=== PATIENT | female | born 1935 | race Caucasian/White ===

== ENCOUNTER → 2017-04-14 | Outpatient (CLI) | payer MEDICARE, OTHER ==
[~2017-04-14] MED LIST: ASPI81CH PO; ATOR20 PO; AZIT250 PO; BENTYL20 MG PO; CELE200 PO; FLUC150A PO; Generlac10 GM/15 M PO; HORMONES; LORA1 PO; METO50 PO; TRIHYD253A PO; VALS80 PO; XARELTO20 MG PO; [UNRECOGNIZED DRUG - OTHER]
== END ==
LOC: LAB 09:17
DX: N39.0 Urinary tract infection, site not specified (principal)
CPT/HCPCS: 87086

== ENCOUNTER → 2017-04-16 | Outpatient (CLI) | payer MEDICARE, OTHER ==
[2017-04-16 09:30] LABS: BASOPHILS ABSOLUTE AUTO 0.04 K/mm3 (0.00-0.23); BASOPHILS PERCENT AUTO 1 % (0-2); EOSINOPHILS ABSOLUTE AUTO 0.18 K/mm3 (0.00-0.68); EOSINOPHILS PERCENT AUTO 5 % (0-6); Hematocrit 28.9 % (33.0-51.0); Hemoglobin 9.5 g/dL (11.5-16.0); IMMATURE GRAN ABSOLUTE AUTO 0.01 K/mm3 (0.00-0.10); IMMATURE GRAN PERCENT AUTO 0 % (0-1); LYMPHOCYTES ABSOLUTE AUTO 1.46 K/mm3 (0.84-5.20); LYMPHOCYTES PERCENT AUTO 42 % (21-46); MONOCYTES ABSOLUTE AUTO 0.27 K/mm3 (0.16-1.47); MONOCYTES PERCENT AUTO 8 % (4-13); Mean Corpuscular HGB 31.8 pg (26.0-34.0); Mean Corpuscular HGB Conc 32.9 g/dL (31.5-36.5); Mean Corpuscular Volume 97 fL (80-100); Mean Platelet Volume 11.1 fL (9.1-12.4); NEUTROPHILS ABSOLUTE AUTO 1.55 K/mm3 (1.96-9.15); NEUTROPHILS PERCENT AUTO 44 % (41-73); Platelet Count 235 K/mm3 (150-400); RDW Coefficient Variation 14.4 % (11.7-14.2); RDW Standard Deviation 51.1 fL (35.1-46.3); Red Blood Cell Count 2.99 M/mm3 (3.80-5.20); White Blood Cell Count 3.51 K/mm3 (4.00-11.30)
[2017-04-16 09:44] LABS: Albumin, Blood 3.7 g/dL (3.4-5.0); Bilirubin, Total 0.6 mg/dL (0.1-1.0); Bun/Creatinine Ratio 15.8 (12.0-20.0); Calcium, Blood 8.6 mg/dL (8.5-10.1); Creatinine, Blood 1.96 mg/dL (0.40-1.00); Globulin, Blood 3.6 g/dL (2.2-4.0); Potassium, Blood 4.2 mmol/L (3.5-5.5); Total Protein, Blood 7.3 g/dL (6.4-8.2)
[2017-04-16 09:48] LABS: Thyroid Stimulating Hormone 3.62 uIU/mL (0.360-4.800)
== END ==
LOC: LAB SHORT 08:40
DX: R11.0 Nausea (principal); R53.81 Other malaise
CPT/HCPCS: 80053; 84443; 85025

== ENCOUNTER → 2017-08-16 | Outpatient (CLI) | payer MEDICARE, OTHER ==
[2017-08-16 12:55] LABS: Protein, Urine Random 23.5 mg/dL (0.0-11.9)
== END | disposition home or self-care (01) ==
LOC: LAB SHORT 08:00 → LAB 08:00
PROVIDERS: Internal Medicine
DX: N18.3 Chronic kidney disease, stage 3 (moderate) (principal)
CPT/HCPCS: 82570; 84156

== ENCOUNTER → 2019-04-03 | Outpatient (CLI) | payer MEDICARE, OTHER | END | disposition home or self-care (01) | LOC: LAB SHORT 12:22 → LAB UCHC 12:22 | DX: N39.0 Urinary tract infection, site not specified (principal) | CPT/HCPCS: 87086 ==

== ENCOUNTER → 2019-04-05 | Outpatient (CLI) | payer MEDICARE, OTHER ==
[2019-04-05 19:29] LABS: Bilirubin, Urine Neg (Neg); Blood, Urine Neg (Neg); Glucose Qualitative, Urine Neg (Neg); Ketones, Urine Neg (Neg); Leukocyte Esterase, Urine 1+ (Neg); Nitrite, Urine Neg (Neg); Protein, Urine 1+ (Neg); Specific Gravity, Urine 1.015 (1.003-1.022); Urobilinogen, Urine NORM (Normal)
[2019-04-05 19:34] LABS: Appearance, Urine Clear (Clear); Color, Urine Yellow (P-Yellow)
[2019-04-05 19:39] LABS: Bacteria Mod /hpf; Red Blood Cells, Urine 0-2 /hpf (0-2); Squamous Epithelial Cells Mod /hpf (Few)
== END | disposition home or self-care (01) ==
LOC: LAB 17:00 → LAB SHORT 17:00
DX: R30.0 Dysuria (principal); R30.9 Painful micturition, unspecified
CPT/HCPCS: 81001; 87077; 87086; 87186

== ENCOUNTER → 2019-05-01 | Outpatient (CLI) | payer MEDICARE, OTHER | END | disposition home or self-care (01) | LOC: LAB SHORT 14:59 → PLD 14:59 | DX: L57.0 Actinic keratosis (principal) | CPT/HCPCS: 88305 ==

== ENCOUNTER → 2019-06-09 | Outpatient (CLI) | payer MEDICARE, OTHER ==
[2019-06-09 12:05] LABS: BASOPHILS ABSOLUTE AUTO 0.03 K/mm3 (0.00-0.23); BASOPHILS PERCENT AUTO 1 % (0-2); EOSINOPHILS ABSOLUTE AUTO 0.03 K/mm3 (0.00-0.68); EOSINOPHILS PERCENT AUTO 1 % (0-6); Hematocrit 33.5 % (33.0-51.0); Hemoglobin 11.5 g/dL (11.5-16.0); IMMATURE GRAN ABSOLUTE AUTO 0.02 K/mm3 (0.00-0.10); IMMATURE GRAN PERCENT AUTO 0 % (0-1); LYMPHOCYTES PERCENT AUTO 8 % (21-46); MONOCYTES ABSOLUTE AUTO 0.47 K/mm3 (0.16-1.47); MONOCYTES PERCENT AUTO 7 % (4-13); Mean Corpuscular HGB 34.1 pg (26.0-34.0); Mean Corpuscular HGB Conc 34.3 g/dL (31.5-36.5); Mean Corpuscular Volume 99 fL (80-100); Mean Platelet Volume 11.9 fL (9.1-12.4); NEUTROPHILS ABSOLUTE AUTO 5.55 K/mm3 (1.96-9.15); NEUTROPHILS PERCENT AUTO 84 % (41-73); Platelet Count 188 K/mm3 (150-400); RDW Coefficient Variation 13.4 % (11.7-14.2); RDW Standard Deviation 48.8 fL (35.1-46.3); Red Blood Cell Count 3.37 M/mm3 (3.80-5.20)
[2019-06-09 12:13] LABS: Albumin, Blood 3.6 g/dL (3.4-5.0); Albumin/Globulin Ratio 0.8 (0.8-1.8); Bilirubin, Total 0.9 mg/dL (0.1-1.0); Bun/Creatinine Ratio 13.6 (12.0-20.0); Calcium, Blood 8.8 mg/dL (8.5-10.1); Creatinine, Blood 2.14 mg/dL (0.40-1.00); Globulin, Blood 4.3 g/dL (2.2-4.0); Potassium, Blood 4.2 mmol/L (3.5-5.5); Total Protein, Blood 7.9 g/dL (6.4-8.2)
== END | disposition home or self-care (01) ==
LOC: LAB SHORT 11:59 → LAB EV 11:59
PROVIDERS: Physician Assistant Surgical
DX: J18.1 Lobar pneumonia, unspecified organism (principal)
CPT/HCPCS: 80053; 85025

== ENCOUNTER 2019-09-20 17:45 | Emergency (ER) | payer MEDICARE, OTHER | END 2019-09-20 20:28 | disposition left against medical advice (07) | LOC: ER 17:45 | DX: Z53.21 Procedure and treatment not carried out due to patient leaving prior to being seen by health care provider (principal) ==

== ENCOUNTER → 2019-10-02 | Outpatient (CLI) | payer MEDICARE, OTHER ==
[2019-10-02 12:52] LABS: Appearance, Urine Hazy (Clear); Bilirubin, Urine Neg (Neg); Blood, Urine Neg (Neg); Color, Urine Yellow (P-Yellow); Glucose Qualitative, Urine Neg (Neg); Ketones, Urine Neg (Neg); Leukocyte Esterase, Urine 3+ (Neg); Nitrite, Urine Neg (Neg); Protein, Urine Neg (Neg); Specific Gravity, Urine 1.015 (1.003-1.022); Urobilinogen, Urine NORM (Normal)
[2019-10-02 12:54] LABS: Bacteria Rare /hpf; Red Blood Cells, Urine Not Seen /hpf (0-2); Squamous Epithelial Cells Mod /hpf (Few); Transitional Epithelial Cells Mod /hpf (0-Rare)
== END | disposition home or self-care (01) ==
LOC: LAB 10:15 → LAB SHORT 10:15
PROVIDERS: Internal Medicine
DX: N18.4 Chronic kidney disease, stage 4 (severe) (principal)
CPT/HCPCS: 81001

== ENCOUNTER → 2020-09-28 | Outpatient (CLI) | payer MEDICARE, OTHER ==
[2020-09-28 11:21] LABS: Appearance, Urine Hazy (Clear); Bilirubin, Urine Neg (Neg); Blood, Urine Neg (Neg); Color, Urine Yellow (P-Yellow); Glucose Qualitative, Urine Neg (Neg); Ketones, Urine Neg (Neg); Leukocyte Esterase, Urine 3+ (Neg); Nitrite, Urine Neg (Neg); Protein, Urine 1+ (Neg); Urobilinogen, Urine NORM (Normal)
[2020-09-28 12:04] LABS: Bacteria Many /hpf; Red Blood Cells, Urine 0-2 /hpf (0-2); Squamous Epithelial Cells Mod /hpf (Few); Transitional Epithelial Cells Mod /hpf (0-Rare)
[2020-09-28 13:09] LABS: Protein, Urine Random 19.9 mg/dL (0.0-11.9)
[2020-09-28 13:27] LABS: Protein/Creat Ratio, Ur Random 0.1
== END | disposition home or self-care (01) ==
LOC: LAB SHORT 09:14 → LAB 09:14 → LAB FUT 06-25 15:55
PROVIDERS: Internal Medicine
DX: N18.4 Chronic kidney disease, stage 4 (severe) (principal)
CPT/HCPCS: 81001; 82570; 84156

== ENCOUNTER → 2021-10-01 | Outpatient (CLI) | payer MEDICARE, OTHER | END | disposition home or self-care (01) | LOC: LAB 17:56 → LAB SHORT 17:56 | DX: R82.79 Other abnormal findings on microbiological examination of urine (principal) | CPT/HCPCS: 87077; 87086; 87186 ==

== ENCOUNTER → 2021-10-20 | Outpatient (CLI) | payer MEDICARE, OTHER ==
[~2021-10-20] MED LIST changes: +AMLO10 PO; +ATOR80 PO; +Acetaminophen650 M1 PO; +DOCUZEN 8.6-501 EACH PO; +FUROSEMIDE20 MG PO; +XARELTO15 MG PO
== END | disposition home or self-care (01) ==
LOC: LAB SHORT 11:00 → LAB 11:00
DX: N39.0 Urinary tract infection, site not specified (principal)
CPT/HCPCS: 87077; 87086; 87186

== ENCOUNTER → 2021-11-08 | Outpatient (CLI) | payer MEDICARE, OTHER ==
[~2021-11-08] MED LIST changes: -AMLO10 PO; -ATOR80 PO; -Acetaminophen650 M1 PO; -DOCUZEN 8.6-501 EACH PO; -FUROSEMIDE20 MG PO; -XARELTO15 MG PO
== END | disposition home or self-care (01) ==
LOC: LAB SHORT 11:37 → LAB 11:37
DX: N39.0 Urinary tract infection, site not specified (principal)
CPT/HCPCS: 87077; 87086; 87186

== ENCOUNTER 2021-12-09 12:48 | Inpatient (IN) | payer MEDICARE, OTHER ==
[~2021-12-09] VITALS: Ht 170.2 cm; Wt 74.0 kg
[2021-12-09 13:36] LABS: BASOPHILS ABSOLUTE AUTO 0.03 K/mm3 (0.00-0.23); BASOPHILS PERCENT AUTO 1 % (0-2); EOSINOPHILS ABSOLUTE AUTO 0.04 K/mm3 (0.00-0.68); EOSINOPHILS PERCENT AUTO 1 % (0-6); Hematocrit 29.7 % (33.0-51.0); Hemoglobin 9.9 g/dL (11.5-16.0); IMMATURE GRAN ABSOLUTE AUTO 0.02 K/mm3 (0.00-0.10); IMMATURE GRAN PERCENT AUTO 0 % (0-1); LYMPHOCYTES ABSOLUTE AUTO 0.91 K/mm3 (0.84-5.20); LYMPHOCYTES PERCENT AUTO 15 % (21-46); MONOCYTES ABSOLUTE AUTO 0.35 K/mm3 (0.16-1.47); MONOCYTES PERCENT AUTO 6 % (4-13); Mean Corpuscular HGB 33.3 pg (26.0-34.0); Mean Corpuscular HGB Conc 33.3 g/dL (31.5-36.5); Mean Corpuscular Volume 100 fL (80-100); NEUTROPHILS ABSOLUTE AUTO 4.89 K/mm3 (1.96-9.15); NEUTROPHILS PERCENT AUTO 78 % (41-73); Platelet Count 173 K/mm3 (150-400); RDW Coefficient Variation 13.5 % (11.7-14.2); RDW Standard Deviation 49.9 fL (35.1-46.3); Red Blood Cell Count 2.97 M/mm3 (3.80-5.20); White Blood Cell Count 6.24 K/mm3 (4.00-11.30)
[2021-12-09 13:51] LABS: Source, Urine Clean Catch
[2021-12-09 13:59] LABS: Appearance, Urine Hazy (Clear); Bilirubin, Urine Neg (Neg); Blood, Urine 1+ (Neg); Color, Urine Yellow (P-Yellow); Glucose Qualitative, Urine Neg (Neg); Ketones, Urine Neg (Neg); Leukocyte Esterase, Urine Neg (Neg); Nitrite, Urine Neg (Neg); Protein, Urine 1+ (Neg); Urobilinogen, Urine NORM (Normal)
[2021-12-09 14:02] LABS: Albumin, Blood 3.3 g/dL (3.4-5.0); Albumin/Globulin Ratio 1.1 (0.8-1.8); Bilirubin, Total 0.7 mg/dL (0.1-1.0); Bun/Creatinine Ratio 11.1 (12.0-20.0); Calcium, Blood 8.5 mg/dL (8.5-10.1); Creatinine, Blood 2.43 mg/dL (0.40-1.00); Globulin, Blood 2.9 g/dL (2.2-4.0); Potassium, Blood 4.5 mmol/L (3.5-5.5); Total Protein, Blood 6.2 g/dL (6.4-8.2)
[2021-12-09 14:17] LABS: Influenza A, PCR NEGATIVE (NEGATIVE); Influenza B, PCR NEGATIVE (NEGATIVE); Resp Syncytial Virus, PCR NEGATIVE (NEGATIVE); SARS-Cov-2 (COVID-19) PCR, MMC NEGATIVE (NEGATIVE)
[2021-12-09 14:18] LABS: Red Blood Cells, Urine 0-2 /hpf (0-2); Squamous Epithelial Cells Few /hpf (Few); White Blood Cells, Urine 0-2 /hpf (0-5)
[2021-12-09 14:19] LABS: Bacteria Rare /hpf
[2021-12-09 14:20] LABS: Hyaline Casts 0-2 /lpf (0-2)
[2021-12-09 14:28] LABS: International Normalized Ratio 1.3; Prothrombin Time Results 13.4 Sec (9.7-11.5)
[2021-12-09] MEDS ORDERED: FUROSEMIDE20 MG PO (17:19)
--- NOTE | 2021-12-09 18:07 | NUR ---
ADMIT/SHIFT SUMMARY PATIENT ADMITTED AT 1705. PATIENT SETTLED INTO ROOM. PATIENT ORIENTED TO CALL LIGHT AND TV CONTROL. PATIENT ADMITTED FOR CVA. PATIENT UNABLE TO SPEAK, BUT ATTEMPTS. PATIENT DOES TRACK WITH HER EYES, TURNS HEAD TO LOOK AT YOU, FOLLOWS SIMPLE COMMANDS. PATIENT HAS NO RESPONSE FOR RIGHT ARM AND LEG. PATIENT RIGHT SIDE OF FACE HAS NO RESPONSE WELL. PATIENT CAN SLIGHTLY SQUEEZE WITH LEFT HAND. PATIENT ALSO VERY RIGID. MRI DONE, AWAITING RESULTS. TELE ON, AFIB IN THE 90'S. SECOND IV PLACED DUE TO HEPARIN ANS FLUIDS ORDERED. 2 RN CHECK DONE AND HEPARIN STARTED AT 12 U/KG/HR. NS AT 75. ADMISSION DONE WITH HELP OF DAUGHTER. PATIENT NPO FOR SPEECH EVAL. PT AND OT ALSO ORDERED. ECHO ORDERED BUT NOT YET DONE. PATIENT IS PLEASANT AND COOPERATIVE WITH CARE.
[2021-12-09 19:15] LABS: Hematocrit 33.1 % (33.0-51.0)
--- NOTE | 2021-12-09 19:56 | NUR ---
NURSE NOTE: 2 RN WITNESS HEPARIN CHECK- VERIFIED WITH DANETTE PATTON RN
[2021-12-10 00:28] LABS: Hematocrit 30.6 % (33.0-51.0); Hemoglobin 10.3 g/dL (11.5-16.0); Mean Corpuscular HGB 33.1 pg (26.0-34.0); Mean Corpuscular HGB Conc 33.7 g/dL (31.5-36.5); Mean Corpuscular Volume 98 fL (80-100); Platelet Count 171 K/mm3 (150-400); RDW Coefficient Variation 13.5 % (11.7-14.2); RDW Standard Deviation 48.7 fL (35.1-46.3); Red Blood Cell Count 3.11 M/mm3 (3.80-5.20); White Blood Cell Count 7.09 K/mm3 (4.00-11.30)
[2021-12-10 00:46] LABS: Bun/Creatinine Ratio 12.2 (12.0-20.0); Calcium, Blood 8.7 mg/dL (8.5-10.1); Creatinine, Blood 2.29 mg/dL (0.40-1.00); Potassium, Blood 4.5 mmol/L (3.5-5.5)
--- NOTE | 2021-12-10 05:19 | NUR ---
SHIFT SUMMARY: PT ALERT TO SELF ONLY- REMAINS COMPLETELY NON VERBAL. ABLE TO TRACK WITH EYES AND CONTINUES TO LOOK AT YOU WHEN SPEAKING TO PATIENT. PATIENT TYPICALLY UNABLE TO FOLLOW COMMANDS YET WHEN REQUESTING TO SQUEEZE LEFT HAND GROSS MOVEMENT WAS FELT. RIGHT SIDE REMAINS FLACCID. PT CONTINUES TO HAVE INCONTINENCE- PUREWICK PLACED DUE TO LARGE URINARY OUTPUT AND INCREASED DISCOMFORT WHEN TURNING. HEPARIN DRIP REMAINS RUNNING CURRENTLY AT 11 UNITS/KG. CONTINUED REPOSITIONING, BED ALARM ACTIVATED, BED IN LOW POSITION, CALL MAO AND BELONGINGS IN REACH.
[2021-12-10 07:39] LABS: CHOL/HDL RATIO 2.1; Cholesterol 121 mg/dL (50-200); HDL Cholesterol 57 mg/dL (>39); Low Density Lipoprotein Chol 55 mg/dL (0-110); Triglycerides 44 mg/dL (30-160); Very Low Density Lipoprot Chol 8 mg/dL (6-32)
--- NOTE | 2021-12-10 18:26 | NUR ---
SHIFT SUMMARY PATIENT DENIES PAIN, NAUSEA, AND SHORTNESS OF BREATH. PATIENT MEDICATED X1 WITH TYLENOL FOR FEVER. EFFECTIVE. PATIENT HAD SPEECH EVAL TODAY. RECOMMEND PUREE, THIN LIQUIDS, NO STRAWS, AND ASSISTANCE EATING. MEDS CRUSHED IN APPLSAUCE. HEPARIN DC'D AND XARELTO STARTED. PATIENT WORKED WITH PT AND OT, SNF RECOMMENDED. ECHO DONE, AWAITING RESULTS. PATIENT DAUGHTER AT BEDSIDE, ASSISTING WITH FEEDING AND ROM. PATIENT STILL UNABLE TO SPEAK. PATIENT DID LAUGH A FEW TIMES TODAY. PATIENT ABLE TO MOVE LEFT ARM WELL. RIGHT SIDE FLACCID. PATIENT FATIGUES QUICKLY. PATIENT IS PLEASANT AND COOPERATIVE WITH CARE.
[2021-12-11 05:16] LABS: BASOPHILS ABSOLUTE AUTO 0.04 K/mm3 (0.00-0.23); BASOPHILS PERCENT AUTO 1 % (0-2); EOSINOPHILS ABSOLUTE AUTO 0.21 K/mm3 (0.00-0.68); EOSINOPHILS PERCENT AUTO 3 % (0-6); Hematocrit 30.9 % (33.0-51.0); Hemoglobin 10.4 g/dL (11.5-16.0); IMMATURE GRAN ABSOLUTE AUTO 0.02 K/mm3 (0.00-0.10); IMMATURE GRAN PERCENT AUTO 0 % (0-1); LYMPHOCYTES ABSOLUTE AUTO 1.06 K/mm3 (0.84-5.20); LYMPHOCYTES PERCENT AUTO 14 % (21-46); MONOCYTES ABSOLUTE AUTO 0.57 K/mm3 (0.16-1.47); MONOCYTES PERCENT AUTO 8 % (4-13); Mean Corpuscular HGB 33.1 pg (26.0-34.0); Mean Corpuscular HGB Conc 33.7 g/dL (31.5-36.5); Mean Corpuscular Volume 98 fL (80-100); Mean Platelet Volume 12.9 fL (9.1-12.4); NEUTROPHILS PERCENT AUTO 74 % (41-73); Platelet Count 163 K/mm3 (150-400); RDW Coefficient Variation 13.8 % (11.7-14.2); RDW Standard Deviation 49.9 fL (35.1-46.3); Red Blood Cell Count 3.14 M/mm3 (3.80-5.20)
[2021-12-11 05:35] LABS: Bun/Creatinine Ratio 13.6 (12.0-20.0); Calcium, Blood 8.9 mg/dL (8.5-10.1); Creatinine, Blood 2.14 mg/dL (0.40-1.00); Potassium, Blood 4.5 mmol/L (3.5-5.5)
--- NOTE | 2021-12-11 05:36 | NUR ---
SHIFT SUMMARY 86 YR F ADMITTED ON 12/09/21 FOR CVA. FULL CODE. NO ACUTE CHANGES THIS SHIFT. PT REMAINS FLACCID ON THE RIGHT SIDE AND IS UNABLE TO COMMUNICATE VERBALLY. HER FACIAL EXPRESSIONS ARE FLAT AND IT IS DIFFICULT TO TELL IF SHE IS IN PAIN OR IS UNCOMFORTABLE. Q2 TURNS W/ NO REACTION. HEART RATE REACHED 130'S AT APPROX 0515 THIS A.M. POSSIBLY INDICATING PAIN, BUT OTHERWISE HARD TO TELL. PT DAUGHTER IS VERY PRO ACTIVE IN HER CARE AND STATED SHE WILL BE HERE AT APPROX 0730. RECOMENDATION IS FOR SNF.
--- NOTE | 2021-12-11 18:10 | NUR ---
SHIFT SUMMARY PTN NONVERBAL POST CVA, MAKES A LAUGHING NOSE AT DAUGHTER AND TELEVISION SHOW. RIGHT-SIDED DEFICIT, RIGHT LEG SPASTIC, RIGHT ARM FLACCID. RIGHT WRIST IV, LEFT AC, RUNS NS @ 75 ML/HR CONTINUOUS CURRENTLY. ON RA. TELEMETRY A-FIB AT 115. MEDS CRUSHED IN PUDDING. INCONTNENT, GABRIELA RE-PLACED THIS SHIFT. DIET PUREED. NO STRAWS. SEEN BY ST AND PT TODAY. SOME IMPROVEMENT ACCORDING TO PT, TO SIDE OF BED. CAN HOLD CUT IN LEFT HAND AND TAKE SIPS. CHRONIC LEFT KNEE DISCOMFORT ACCORDING TO DAUGHTER. VERTICAL SKIN TEARS UNDER RIGHT BREAST, CLEANED AND DRIED. TACHY UP TO 150, DOWN TO 130'S, REPORTED TO DR GAMEZ. METOPROLOL TO BE ADDED BID. CONTINUE TO MONITOR.
--- NOTE | 2021-12-12 05:14 | NUR ---
SHIFT SUMMARY 86 YR F ADMITTED ON 12/09/21 FOR CVA W/ RIGHT SIDE DEFICIT. FULL CODE. NO ACUTE CHANGES THIS SHIFT. PT IS STILL UNABLE TO VERBALLY COMMUNICATE AND IS BARELY ABLE TO MOVE HER BODY AT ALL. BP WAS ELEVATED AT BEGINNING OF THIS SHIFT WELL SHE HAD A LOW-GRADE FEVER. PRN METOPROLOL AND TYLENOL WERE GIVEN BY WAY OF CRUSHED MEDS IN [place]. THE MEDS WERE EFFECTIVE IN BRINGING DOWN HER TEMP AND BP. AT APPROX 2205 THIS NURSE GOT A CALL FROM [employer] [facility] STATING THAT PT HAD A 2 SECOND PAUSE. ABOUT 7 MIN LATER SHE HAD 5 WAVES OF VTAC ACCORDING TO [employer]. THERE WERE NO OTHER NOTEABLE RYTHMS FOR THE REST OF THE SHIFT.
[2021-12-12 05:32] LABS: BASOPHILS ABSOLUTE AUTO 0.03 K/mm3 (0.00-0.23); BASOPHILS PERCENT AUTO 0 % (0-2); EOSINOPHILS PERCENT AUTO 1 % (0-6); Hematocrit 30.8 % (33.0-51.0); Hemoglobin 10.3 g/dL (11.5-16.0); IMMATURE GRAN ABSOLUTE AUTO 0.02 K/mm3 (0.00-0.10); IMMATURE GRAN PERCENT AUTO 0 % (0-1); LYMPHOCYTES ABSOLUTE AUTO 0.86 K/mm3 (0.84-5.20); LYMPHOCYTES PERCENT AUTO 11 % (21-46); MONOCYTES ABSOLUTE AUTO 0.71 K/mm3 (0.16-1.47); MONOCYTES PERCENT AUTO 9 % (4-13); Mean Corpuscular HGB Conc 33.4 g/dL (31.5-36.5); Mean Corpuscular Volume 99 fL (80-100); Mean Platelet Volume 12.7 fL (9.1-12.4); NEUTROPHILS ABSOLUTE AUTO 5.83 K/mm3 (1.96-9.15); NEUTROPHILS PERCENT AUTO 77 % (41-73); Platelet Count 148 K/mm3 (150-400); RDW Coefficient Variation 13.7 % (11.7-14.2); RDW Standard Deviation 49.9 fL (35.1-46.3); Red Blood Cell Count 3.12 M/mm3 (3.80-5.20); White Blood Cell Count 7.55 K/mm3 (4.00-11.30)
[2021-12-12 05:58] LABS: Bun/Creatinine Ratio 14.6 (12.0-20.0); Calcium, Blood 8.7 mg/dL (8.5-10.1); Creatinine, Blood 1.99 mg/dL (0.40-1.00); Potassium, Blood 4.4 mmol/L (3.5-5.5)
--- NOTE | 2021-12-12 18:35 | NUR ---
SHIFT SUMMARY PTN 2-PERSON ASSIST, RIGHT-SIDED DEFICIT. NONVERBAL, SOMEWHAT SMILES AND LAUGHS AT TELEVISION. MEDS TAKEN WITH CHOCOLATE PUDDING WITH DIFFICULTY IN OPENING MOUTH. PTN WIH RIGHT WRIST PERIPHERAL IV, PATENT. LEFT AC IV NOT PATENT AND REMOVED THIS SHIFT. TELE A-FIB AT 115. NORVASC ADDED TO MED REGIMEN. X-RAY DONE TO LEFT HIP DUE TO DAUGHTER CONCERN FOR PAIN POST FALL. DAUGHTER PRESENT MUCH OF DAY. CONTINUE TO FOLLOW.
[2021-12-13 04:41] LABS: BASOPHILS ABSOLUTE AUTO 0.04 K/mm3 (0.00-0.23); BASOPHILS PERCENT AUTO 1 % (0-2); EOSINOPHILS ABSOLUTE AUTO 0.18 K/mm3 (0.00-0.68); EOSINOPHILS PERCENT AUTO 3 % (0-6); Hematocrit 30.5 % (33.0-51.0); IMMATURE GRAN ABSOLUTE AUTO 0.02 K/mm3 (0.00-0.10); IMMATURE GRAN PERCENT AUTO 0 % (0-1); LYMPHOCYTES PERCENT AUTO 17 % (21-46); MONOCYTES ABSOLUTE AUTO 0.63 K/mm3 (0.16-1.47); MONOCYTES PERCENT AUTO 10 % (4-13); Mean Corpuscular HGB 32.7 pg (26.0-34.0); Mean Corpuscular HGB Conc 32.8 g/dL (31.5-36.5); Mean Corpuscular Volume 100 fL (80-100); Mean Platelet Volume 12.6 fL (9.1-12.4); NEUTROPHILS ABSOLUTE AUTO 4.44 K/mm3 (1.96-9.15); NEUTROPHILS PERCENT AUTO 69 % (41-73); Platelet Count 156 K/mm3 (150-400); RDW Coefficient Variation 13.5 % (11.7-14.2); RDW Standard Deviation 49.3 fL (35.1-46.3); Red Blood Cell Count 3.06 M/mm3 (3.80-5.20); White Blood Cell Count 6.41 K/mm3 (4.00-11.30)
[2021-12-13 04:57] LABS: Bun/Creatinine Ratio 17.4 (12.0-20.0); Calcium, Blood 8.5 mg/dL (8.5-10.1); Creatinine, Blood 1.84 mg/dL (0.40-1.00); Potassium, Blood 4.2 mmol/L (3.5-5.5)
--- NOTE | 2021-12-13 05:01 | NUR ---
SHIFT SUMMARY 86 YR F ADMITTED ON 12/09/21 FOR CVA. FULL CODE. NO ACUTE CHANGES THIS SHIFT. PT IS STILL UNABLE TO COMMUNICATE BUT DID SLEEP FOR MOST OF THIS SHIFT. SHE WAS UNAROUSEABLE FOR EVENING MED WHICH IS METOPROLOL. PUREWICK IN PLACE BUT LOW OUTPUT.
--- NOTE | 2021-12-13 18:43 | NUR ---
PATIENT IS ALERT. UNABLE TO ASSESS IF SHE IS ORIENTED. PATIENT IS NON VERBAL SHE HAS USED THE COMMUNICATION CARD AND POINTED TO YES/NO THIS SHIFT. PARTIAL BEDBATH THIS SHIFT. A SMALL LOOSE BM THIS AFTERNOON. THE PATIENT'S DAUGHTER IS AT THE BEDSIDE AND VERY HELPFUL. POOR URINE OUTPUT. PUREWICK IN PLACE. DR. IZQUIERDO NOTIFIED AND SAID HE WANTS TO MONITOR FOR NOW. PATIENT WORKED WITH PT OT ST TODAY. HER APPETITE IS POOR BUT BETTER THAN BEFORE ACCORDING TO HER DAUGHTER. DESIGN MANAGER INVOLVED. WILL CONTINUE TO MONITOR
--- NOTE | 2021-12-14 05:30 | NUR ---
CALL TO PROVIDER I WAS CONCERNED THAT PT WAS NOT GETTING ENOUGH FLUIDS BECAUSE MOTOR DEFICITS WERE PREVENTING HER FROM DRINKING. I ENCOURAGED FLUIDS BUT SHE WAS ONLY ABLE TO DRINK LESS THAN 200 ML T/O THE NIGHT. SHE HAD LOW URINE OUTPUT AND HAS CKD III. I CALLED DR JACOB AND RELAYED MY CONCERNS, AND THAT IV FLUIDS WERE STOPPED EARLIER TODAY. HE ORDERED ONE BAG OF 1000 ML NS TO BE GIVEN AT 75 ML/HR NOW.
--- NOTE | 2021-12-14 05:42 | NUR ---
SHIFT SUMMARY PT IS ALERT, UNABLE TO ASSESS ORIENTATION DUE TO HER BEING NON VERBAL. I TRIED TO USE THE COMMUNICAITON CARD MULTIPLE TIMES WITHOUT SUCCESS. TOWARDS THE END OF THE SHIFT SHE WAS ABLE TO NOD UNDERSTANDING OF MY EXPLINATIONS SEVERAL TIMES WHICH SEEMED LIKE AN IMPROVEMENT FROM THE START OF THE SHIFT. I ENCOURAGED PO FLUIDS BUT PT HAD A DIFFICULT TIME DRINKING ANYTHING WITH HER MOTOR DEFICITS. PT'S URINE OUTPUT REMAINS LOW WITH DARK AD URINE. I RELAYED THIS INFO TO THE HOSPITALIST AND HE ORDERED ONE 1L BAG NS AT 75.
[2021-12-14 06:08] LABS: Bun/Creatinine Ratio 20.4 (12.0-20.0); Calcium, Blood 8.8 mg/dL (8.5-10.1); Creatinine, Blood 1.67 mg/dL (0.40-1.00); Potassium, Blood 3.8 mmol/L (3.5-5.5)
--- NOTE | 2021-12-14 18:40 | NUR ---
SHIFT SUMMARY PATIENT DENIES PAIN, NAUSEA, AND SHORTNESS OF BREATH. PATIENT IS A LIFT FOR TRANFERS AND 2P FOR REPSISITON. PATIENT DID NOT VERBALIZE ANY WORDS TODAY, BUT DID ATTEMPT TO. PATIENT SEEMS TO BE UNDERSTANDING DIRECTIONS BETTER. PATIENT WORKED WITH PT, WAS ABLE TO SIT ON SIDE OF BED. PATIENT WORKED WITH OT AND ST TOO. RECOMMENDATION IS SNF. PATIENT HAS BEEN ACCEPTED TO [facility]. COVID SW[facility] SCHEDULED FOR 6AM. PROBABLE DISCHARGE TOMORROW. PATIENT SEEMS TO BE EATING BETTER TODAY, DRINKING ENSURE. PATIENT IS PLEASANT AND COOPERATIVE WITH CARE.
--- NOTE | 2021-12-15 05:26 | NUR ---
SHIFT SUMMARY NO ACCUTE EVENTS T/O SHIFT. PT SLEPT FOR MOST OF THE NIGHT. SHE HAD A SMALL SMEARY BM BUT NOT ENOUGH TO GET A STOOL SAMPLE. SHE DID NOT APPEAR TO BE IN DISTRESS T/O SHIFT, AND SHE WAS REPOSITIONED FOR COMFORT. PT ENCOURAGED TO DRINK PO FLUIDS BUT ONLY DRANK A FEW SIPS FOR ME. PUREWICK WAS CHANGED AND IS IN PLACE AND DRAINING LIGHT AD URINE.
[2021-12-15 07:10] LABS: Influenza A, PCR NEGATIVE (NEGATIVE); Influenza B, PCR NEGATIVE (NEGATIVE); Resp Syncytial Virus, PCR NEGATIVE (NEGATIVE); SARS-Cov-2 (COVID-19) PCR, MMC NEGATIVE (NEGATIVE)
[2021-12-15] MEDS ORDERED: XARELTO15 MG PO (12:43)
[2021-12-15] MEDS ORDERED: Acetaminophen650 M1 PO (12:46)
[2021-12-15] MEDS ORDERED: AMLO10 PO (12:47)
[2021-12-15] MEDS ORDERED: ASPI81CH PO (12:48)
[2021-12-15] MEDS ORDERED: ATOR80 PO (12:50)
[2021-12-15] MEDS ORDERED: DOCUZEN 8.6-501 EACH PO (12:53)
--- NOTE | 2021-12-15 13:42 | NUR ---
DISCHARGE PATIENT TRANSPORTED VIA GURNEY BY [facility]. PATIENT DISCHARGING TO [facility]. DISCHARGE INSTRUCTIONS FAXED TO [facility]. IV REMOVED WITHOUT DIFFICULTY. TELE REMOVED WITHOUT DIFFICULTY. DAUGHTER NOTIIFIED OF TRANSFER TIME. MEDICATIONS FAXED TO [facility]. BELONGINGS SENT WITH PATIENT. DAUGHTER PICKED UP BELONGINGS. REPORT CALLED TO DIONNA ESTRADA RN AT [facility]. FACILITY TO SCHEDULE FOLLOW UP APPOINTMENT.
== END 2021-12-15 13:25 | DRG 65 ==
LOC: ER 12:48 → MEDS 14:44
PROVIDERS: Emergency Medicine; Family Medicine; Nurse Practitioner Acute Care; ADMIT Internal Medicine
DX: I63.512 Cerebral infarction due to unspecified occlusion or stenosis of left middle cerebral artery (principal); G81.91 Hemiplegia, unspecified affecting right dominant side; N18.4 Chronic kidney disease, stage 4 (severe); M25.559 Pain in unspecified hip; I12.9 Hypertensive chronic kidney disease with stage 1 through stage 4 chronic kidney disease, or unspecified chronic kidney disease; I48.0 Paroxysmal atrial fibrillation; R29.810 Facial weakness; Z20.822 Contact with and (suspected) exposure to COVID-19; E78.00 Pure hypercholesterolemia, unspecified; Z98.890 Other specified postprocedural states; Z90.49 Acquired absence of other specified parts of digestive tract; Z79.01 Long term (current) use of anticoagulants; Z90.710 Acquired absence of both cervix and uterus; Z79.899 Other long term (current) drug therapy; Z79.82 Long term (current) use of aspirin; Z79.02 Long term (current) use of antithrombotics/antiplatelets
CPT/HCPCS: 0241U; 36415; 70450; 70496; 70498; 70551; 72170; 80048; 80053; 80061; 81001; 82947; 83036; 85014; 85018; 85025; 85027; 85520; 85610; 85730; 92526; 92610; 93005; 93010; 93306; 94760; 97110; 97112; 97161; 97166; 97530; 97535; 99291-25; A9270; J1644; J7030; P9612; Q3014; Q9967

== ENCOUNTER → 2021-12-21 | Outpatient (CLI) | payer MEDICARE, OTHER ==
[~2021-12-21] MED LIST changes: +AMLO10 PO; +ATOR80 PO; +Acetaminophen650 M1 PO; +DOCUZEN 8.6-501 EACH PO; +FUROSEMIDE20 MG PO; +XARELTO15 MG PO
[2021-12-21 15:54] LABS: Hematocrit 33.4 % (33.0-51.0); Hemoglobin 11.3 g/dL (11.5-16.0); Mean Corpuscular HGB 32.8 pg (26.0-34.0); Mean Corpuscular HGB Conc 33.8 g/dL (31.5-36.5); Mean Corpuscular Volume 97 fL (80-100); Mean Platelet Volume 12.4 fL (9.1-12.4); Platelet Count 313 K/mm3 (150-400); RDW Coefficient Variation 13.8 % (11.7-14.2); RDW Standard Deviation 48.8 fL (35.1-46.3); Red Blood Cell Count 3.44 M/mm3 (3.80-5.20)
[2021-12-21 16:02] LABS: Albumin, Blood 4.2 g/dL (3.4-5.0); Albumin/Globulin Ratio 1.2 (0.8-1.8); Bilirubin, Total 0.8 mg/dL (0.1-1.0); Bun/Creatinine Ratio 17.1 (12.0-20.0); Calcium, Blood 9.8 mg/dL (8.5-10.1); Creatinine, Blood 1.93 mg/dL (0.40-1.00); Globulin, Blood 3.6 g/dL (2.2-4.0); Potassium, Blood 4.4 mmol/L (3.5-5.5); Total Protein, Blood 7.8 g/dL (6.4-8.2)
== END | disposition home or self-care (01) ==
LOC: LAB SHORT 15:37
PROVIDERS: Internal Medicine
DX: I60.12 Nontraumatic subarachnoid hemorrhage from left middle cerebral artery (principal); I13.10 Hypertensive heart and chronic kidney disease without heart failure, with stage 1 through stage 4 chronic kidney disease, or unspecified chronic kidney disease
CPT/HCPCS: 80053; 85027

== ENCOUNTER 2022-01-17 13:02 | Inpatient (IN) | payer MEDICARE, OTHER ==
[~2022-01-17] VITALS: Ht 167.6 cm; Wt 78.9 kg
[2022-01-17 13:36] LABS: BASOPHILS ABSOLUTE AUTO 0.04 K/mm3 (0.00-0.23); BASOPHILS PERCENT AUTO 1 % (0-2); EOSINOPHILS ABSOLUTE AUTO 0.11 K/mm3 (0.00-0.68); EOSINOPHILS PERCENT AUTO 2 % (0-6); Hematocrit 18.8 % (33.0-51.0); Hemoglobin 6.2 g/dL (11.5-16.0); IMMATURE GRAN ABSOLUTE AUTO 0.05 K/mm3 (0.00-0.10); IMMATURE GRAN PERCENT AUTO 1 % (0-1); LYMPHOCYTES ABSOLUTE AUTO 1.36 K/mm3 (0.84-5.20); LYMPHOCYTES PERCENT AUTO 18 % (21-46); MONOCYTES ABSOLUTE AUTO 0.59 K/mm3 (0.16-1.47); MONOCYTES PERCENT AUTO 8 % (4-13); Mean Corpuscular HGB 34.8 pg (26.0-34.0); Mean Corpuscular Volume 106 fL (80-100); Mean Platelet Volume 11.9 fL (9.1-12.4); NEUTROPHILS ABSOLUTE AUTO 5.39 K/mm3 (1.96-9.15); NEUTROPHILS PERCENT AUTO 72 % (41-73); NRBC ABSOLUTE 0.02 K/mm3 (0.00-0.02); NRBC Auto 0.3 /100 WBC (0.0-0.2); Platelet Count 232 K/mm3 (150-400); RDW Coefficient Variation 16.9 % (11.7-14.2); RDW Standard Deviation 59.2 fL (35.1-46.3); Red Blood Cell Count 1.78 M/mm3 (3.80-5.20); White Blood Cell Count 7.54 K/mm3 (4.00-11.30)
[2022-01-17 14:00] LABS: Albumin, Blood 3.9 g/dL (3.4-5.0); Albumin/Globulin Ratio 1.4 (0.8-1.8); Bilirubin, Total 0.6 mg/dL (0.1-1.0); Bun/Creatinine Ratio 31.8 (12.0-20.0); Calcium, Blood 9.3 mg/dL (8.5-10.1); Creatinine, Blood 2.64 mg/dL (0.40-1.00); Globulin, Blood 2.7 g/dL (2.2-4.0); Potassium, Blood 4.5 mmol/L (3.5-5.5); Total Protein, Blood 6.6 g/dL (6.4-8.2)
[2022-01-17 16:17] LABS: Base Excess Venous -4.1 mmol/L; Bicarbonate Venous 21.2 mmol/L (24.0-30.0); PCO2 Venous 37.6 mmHg (38-42); PO2 Venous 68.8 mmHg (38-42); pH Blood Venous 7.36 (7.34-7.37)
[2022-01-18 00:36] LABS: Hematocrit 23.3 % (33.0-51.0); Hemoglobin 7.6 g/dL (11.5-16.0)
[2022-01-18 05:05] LABS: Hemoglobin 12.3 g/dL (11.5-16.0); Mean Corpuscular HGB 32.4 pg (26.0-34.0); Mean Corpuscular HGB Conc 34.2 g/dL (31.5-36.5); Mean Platelet Volume 12.2 fL (9.1-12.4); Platelet Count 127 K/mm3 (150-400); RDW Coefficient Variation 19.7 % (11.7-14.2); RDW Standard Deviation 59.6 fL (35.1-46.3); White Blood Cell Count 3.74 K/mm3 (4.00-11.30)
[2022-01-18 05:06] LABS: Mean Corpuscular Volume 95 fL (80-100)
--- NOTE | 2022-01-18 05:54 | NUR ---
SHIFT SUMMARY: DIFFICULT TO ASSESS ACCURATE ORIENTATION DUE TO EXPRESSIVE EPHASIA AT BASELINE FROM PREVIOUS CVA. RUE AND RLE CONTRACTED DUE TO INABILITY TO MOVE FROM CVA. NO FACIAL DROOPING NOTED. O2 SATS > 92% ON RA. HR A-FIB/A-FLUTTER IN 80'S. NO COMPLAINTS OF CHEST PAIN OR SOB. INTERMITTENT COMPLAINTS OF ABDOMENAL PAIN, DENIES NAUSEA. ABDOMEN SOFT WITHOUT DISTENTION NOTED. NO GUARDING WITH PALPATION. 2 PRBC TRANSFUSED WITHOUT SIGNS OF COMPLICATIONS. REPOSITIONED Q2H AND CHANGED DUE TO INCONTINENCE. NORMAL SALINE INFUSING ORDERED.
[2022-01-18] MEDS ORDERED: FERROUS GLUCON324 M7 PO (07:43)
[2022-01-18] MEDS ORDERED: MIRALAX17 GM PO (07:44)
[2022-01-18] MEDS ORDERED: PANT40 PO (07:45)
[2022-01-18] MEDS ORDERED: CIPR500 PO (07:46)
[2022-01-18] MEDS ORDERED: METO50ER PO (07:47)
--- NOTE | 2022-01-18 15:04 | NUR ---
01/18/22 1504 Brian Umana History, Chart, Medications and Allergies reviewed before start of procedure. MONITOR INTACT WITH CONTINUOUS PULSE OXIMETRY AND INTERMITTENT BP. 3-LEAD EKG REVIEWED WITH PHYSICIAN PRIOR TO START OF PROCEDURE. O2 VIA N/C INTACT THROUGHOUT SEDATION/PROCEDURE. 2% LIDOCAINE SPRAY TO BACK OF THROAT. Bite Block Placed.
--- NOTE | 2022-01-18 17:36 | NUR ---
SHIFT SUMMARY PT HAS EXPRESSIVE APHASIA BUT IS A&O X4 AND COOROPERATIVE OF CARE. PT HAS C/O DISCOMFORT ON BUTTOCKS DUE TO RASH AND PREFERS TO HAVE BOTTOM FLOATED ON PILLOWS. RIGHT SIDED WEAKNESS D/T PAST CVA. PT C/O OF PAIN WHEN MOVING RIGHT ARM. DAUGHTER HAS BEEN AT BEDSIDE FOR MOST OF THE DAY. PT TAKEN FOR ENDOSCOPE IN AFTERNOON AND 1 ULCER WAS DISCOVERED. PT USES CALL LIGHT APPROPRIATELY. VSS. BED IN LOWEST POSITIOIN AND CALL LIGHT IN REACH.
[2022-01-19 03:56] LABS: Hematocrit 25.2 % (33.0-51.0); Hemoglobin 8.4 g/dL (11.5-16.0); Mean Corpuscular HGB 32.4 pg (26.0-34.0); Mean Corpuscular HGB Conc 33.3 g/dL (31.5-36.5); Mean Corpuscular Volume 97 fL (80-100); Mean Platelet Volume 11.4 fL (9.1-12.4); Platelet Count 210 K/mm3 (150-400); RDW Coefficient Variation 19.7 % (11.7-14.2); RDW Standard Deviation 62.3 fL (35.1-46.3); Red Blood Cell Count 2.59 M/mm3 (3.80-5.20); White Blood Cell Count 6.15 K/mm3 (4.00-11.30)
[2022-01-19 04:17] LABS: Albumin, Blood 3.1 g/dL (3.4-5.0); Albumin/Globulin Ratio 1.2 (0.8-1.8); Bilirubin, Total 1.1 mg/dL (0.1-1.0); Bun/Creatinine Ratio 26.4 (12.0-20.0); Calcium, Blood 8.2 mg/dL (8.5-10.1); Creatinine, Blood 1.93 mg/dL (0.40-1.00); Globulin, Blood 2.6 g/dL (2.2-4.0); Potassium, Blood 3.8 mmol/L (3.5-5.5); Total Protein, Blood 5.7 g/dL (6.4-8.2)
--- NOTE | 2022-01-19 05:54 | NUR ---
NOC SHIFT SUMMARY PT ORIENTED X4 BUT ANXIOUS THROUGHOUT SHIFT. EXPRESSIVE APHASIA AAND R SIDED WEAKNESS WITH R ARM CONTRACTURE BASELINE. ON RA, VSS PER PT TREND. NAUSEA AND PAIN X1 - PRNS GIVEN W/RELIEF. SEE EMAR FOR DETAILS. INCONTIENT OF BLADDER, Q2 TURNS AND BRIEF CHANGED X3 OVERNIGHT. AFIB IN 80S ON TELEMETRY. IVF RUNNING PER PROVIDER ORDER. PILLS CRUSHED IN APPLESAUCE. WILL PASS ON TO DAY RN.
--- NOTE | 2022-01-19 17:26 | NUR ---
SHIFT SUMMARY- VSS. PT A&O X3, KNOWS WHAT SHE WANTS TO SAY BUT STRUGGLES TO GET WORDS OUT DUE TO APHASIA. ABLE TO COMMUNICATE NEEDS WITH PATIENCE. TELE DISCONTINUED. ON RA. BLE EDEMA MILD. DAUGHTER AT BEDSIDE. PT TEARFUL AT TIMES BUT EASILY REDIRECTED WITH ATTENTION. TURNED Q2HR. PT RESTING WITH SIDE RAILS UP. BED ALARM ON, AND CALL LIGHT IN REACH.
[2022-01-20 05:11] LABS: Hemoglobin 7.7 g/dL (11.5-16.0); Mean Corpuscular HGB 33.2 pg (26.0-34.0); Mean Corpuscular HGB Conc 33.5 g/dL (31.5-36.5); Mean Corpuscular Volume 99 fL (80-100); Mean Platelet Volume 11.4 fL (9.1-12.4); Platelet Count 192 K/mm3 (150-400); RDW Coefficient Variation 19.4 % (11.7-14.2); RDW Standard Deviation 65.4 fL (35.1-46.3); Red Blood Cell Count 2.32 M/mm3 (3.80-5.20); White Blood Cell Count 4.53 K/mm3 (4.00-11.30)
[2022-01-20 05:28] LABS: Albumin, Blood 2.7 g/dL (3.4-5.0); Albumin/Globulin Ratio 1.1 (0.8-1.8); Bilirubin, Total 0.8 mg/dL (0.1-1.0); Bun/Creatinine Ratio 22.2 (12.0-20.0); Creatinine, Blood 1.71 mg/dL (0.40-1.00); Globulin, Blood 2.4 g/dL (2.2-4.0); Potassium, Blood 3.9 mmol/L (3.5-5.5); Total Protein, Blood 5.1 g/dL (6.4-8.2)
--- NOTE | 2022-01-20 05:50 | NUR ---
NOC SHIFT SUMMARY PT ORIENTED X3-4, ANXIOUS AND TEARFUL OVERNIGHT. REQUESTING SOMETHING FOR SLEEP. ON-CALL RESIDENT- DR. Soni CALLED AND ORDERS RECEIVED (SEE EMAR FOR DETAILS). NO COMPLAINTS OF PAIN, DENIES SOA OR CHEST PAIN. MEDICAL NO TELE STATUS. VITALS WNL, ON RA. WILL PASS ON TO DAY RN
[2022-01-20 23:30] LABS: SARS-Cov-2 (COVID-19) PCR, MMC NEGATIVE (NEGATIVE)
[2022-01-21 05:34] LABS: Albumin, Blood 2.7 g/dL (3.4-5.0); Albumin/Globulin Ratio 1.1 (0.8-1.8); Bilirubin, Total 0.8 mg/dL (0.1-1.0); Bun/Creatinine Ratio 19.1 (12.0-20.0); Calcium, Blood 8.1 mg/dL (8.5-10.1); Creatinine, Blood 1.73 mg/dL (0.40-1.00); Globulin, Blood 2.4 g/dL (2.2-4.0); Potassium, Blood 4.1 mmol/L (3.5-5.5); Total Protein, Blood 5.1 g/dL (6.4-8.2)
[2022-01-21 06:06] LABS: Hematocrit 24.2 % (33.0-51.0); Hemoglobin 7.9 g/dL (11.5-16.0); Mean Corpuscular HGB 32.6 pg (26.0-34.0); Mean Corpuscular HGB Conc 32.6 g/dL (31.5-36.5); Mean Corpuscular Volume 100 fL (80-100); Mean Platelet Volume 11.3 fL (9.1-12.4); Platelet Count 185 K/mm3 (150-400); RDW Coefficient Variation 18.9 % (11.7-14.2); RDW Standard Deviation 67.5 fL (35.1-46.3); Red Blood Cell Count 2.42 M/mm3 (3.80-5.20); White Blood Cell Count 4.18 K/mm3 (4.00-11.30)
--- NOTE | 2022-01-21 06:27 | NUR ---
NOC SHIFT SUMMARY PT ORIENTED X3-4, ANXIOUS AND SLEPT SOME AFTER MELATONIN ADMINISTRATION. CVA RESIDUAL NOTED - R ARM CONTRACTURE/WEAKNESS. R LEG MINIMAL MOVEMENT. EXPRESSIVE APHASIA. DENIES SOA OR CHEST PAIN. MEDICAL NO TELE STATUS. VITALS WNL, ON RA. WILL PASS ON TO DAY RN
--- NOTE | 2022-01-21 07:32 | NUR ---
TOOK OVER CARE OF PT AT 0720.
--- NOTE | 2022-01-21 12:52 | NUR ---
REPORT GIVEN TO ERENDIRA MEADE.
== END 2022-01-21 13:29 | DRG 378 ==
LOC: ER 13:02 → PCU 15:01
PROVIDERS: Internal Medicine Gastroenterology; Nurse Practitioner Acute Care; Physician Assistant; ADMIT Internal Medicine
PROC: 30233N1 Transfusion of Nonautologous Red Blood Cells into Peripheral Vein, Percutaneous Approach (ICD-10-PCS; 2022-01-18)
PROC: 0DJ08ZZ Inspection of Upper Intestinal Tract, Via Natural or Artificial Opening Endoscopic (ICD-10-PCS; principal; 2022-01-18 13:30)
DX: K26.4 Chronic or unspecified duodenal ulcer with hemorrhage (principal); D62 Acute posthemorrhagic anemia; N18.4 Chronic kidney disease, stage 4 (severe); N39.0 Urinary tract infection, site not specified; N17.9 Acute kidney failure, unspecified; I48.20 Chronic atrial fibrillation, unspecified; I48.0 Paroxysmal atrial fibrillation; K25.4 Chronic or unspecified gastric ulcer with hemorrhage; K59.00 Constipation, unspecified; D50.9 Iron deficiency anemia, unspecified; E78.5 Hyperlipidemia, unspecified; M48.00 Spinal stenosis, site unspecified; I12.9 Hypertensive chronic kidney disease with stage 1 through stage 4 chronic kidney disease, or unspecified chronic kidney disease; Z86.73 Personal history of transient ischemic attack (TIA), and cerebral infarction without residual deficits; Z98.890 Other specified postprocedural states; Z90.49 Acquired absence of other specified parts of digestive tract; Z90.710 Acquired absence of both cervix and uterus; Z79.82 Long term (current) use of aspirin; Z79.899 Other long term (current) drug therapy; Z85.3 Personal history of malignant neoplasm of breast; Z90.722 Acquired absence of ovaries, bilateral; Z98.41 Cataract extraction status, right eye
CPT/HCPCS: 36415; 36430; 80053; 82272; 82728; 82803; 83540; 83550; 83880; 85014; 85018; 85025; 85027; 86850; 86900; 86901; 86923; 93005; 93010; 96374; 97110; 97112; 97162; 97166; 97530; 99285-25; A9270; C1751; C9113; J2001; J2405; J2704; J2916; J7030; P9016; U0004

== ENCOUNTER 2022-05-02 02:08 | Day surgery (SDC) | payer MEDICARE, OTHER | END 2022-05-02 10:58 | disposition home or self-care (01) | LOC: ATC 02:08 | DX: D63.1 Anemia in chronic kidney disease (principal); I12.9 Hypertensive chronic kidney disease with stage 1 through stage 4 chronic kidney disease, or unspecified chronic kidney disease; N18.4 Chronic kidney disease, stage 4 (severe); I48.91 Unspecified atrial fibrillation; Z86.73 Personal history of transient ischemic attack (TIA), and cerebral infarction without residual deficits; Z88.0 Allergy status to penicillin | CPT/HCPCS: J2916 ==

== ENCOUNTER → 2022-05-02 | Outpatient (CLI) | payer MEDICARE, OTHER ==
[~2022-05-02] MED LIST changes: +CIPR500 PO; +FERROUS GLUCON324 M7 PO; +METO50ER PO; +MIRALAX17 GM PO; +PANT40 PO; +POTA10T PO; +SIME80CH PO
[2022-05-02 18:45] LABS: BASOPHILS ABSOLUTE AUTO 0.04 K/mm3 (0.00-0.23); BASOPHILS PERCENT AUTO 1 % (0-2); EOSINOPHILS ABSOLUTE AUTO 0.21 K/mm3 (0.00-0.68); EOSINOPHILS PERCENT AUTO 5 % (0-6); Hematocrit 26.6 % (33.0-51.0); Hemoglobin 8.4 g/dL (11.5-16.0); IMMATURE GRAN ABSOLUTE AUTO 0.01 K/mm3 (0.00-0.10); IMMATURE GRAN PERCENT AUTO 0 % (0-1); LYMPHOCYTES ABSOLUTE AUTO 0.93 K/mm3 (0.84-5.20); LYMPHOCYTES PERCENT AUTO 23 % (21-46); MONOCYTES ABSOLUTE AUTO 0.49 K/mm3 (0.16-1.47); MONOCYTES PERCENT AUTO 12 % (4-13); Mean Corpuscular HGB 32.7 pg (26.0-34.0); Mean Corpuscular HGB Conc 31.6 g/dL (31.5-36.5); Mean Corpuscular Volume 104 fL (80-100); Mean Platelet Volume 11.7 fL (9.1-12.4); NEUTROPHILS ABSOLUTE AUTO 2.37 K/mm3 (1.96-9.15); NEUTROPHILS PERCENT AUTO 59 % (41-73); Platelet Count 250 K/mm3 (150-400); RDW Coefficient Variation 16.5 % (11.7-14.2); RDW Standard Deviation 62.4 fL (35.1-46.3); Red Blood Cell Count 2.57 M/mm3 (3.80-5.20); White Blood Cell Count 4.05 K/mm3 (4.00-11.30)
[2022-05-02 19:10] LABS: Albumin, Blood 3.8 g/dL (3.4-5.0); Albumin/Globulin Ratio 1.1 (0.8-1.8); Bilirubin, Total 0.5 mg/dL (0.1-1.0); Bun/Creatinine Ratio 20.7 (12.0-20.0); Creatinine, Blood 2.17 mg/dL (0.40-1.00); Globulin, Blood 3.5 g/dL (2.2-4.0); Potassium, Blood 4.9 mmol/L (3.5-5.5); Total Protein, Blood 7.3 g/dL (6.4-8.2)
== END | disposition home or self-care (01) ==
LOC: LAB SHORT 14:25
PROVIDERS: Nurse Practitioner Family
DX: M79.89 Other specified soft tissue disorders (principal)
CPT/HCPCS: 80053; 85025

== ENCOUNTER 2022-05-16 00:21 | Day surgery (SDC) | payer MEDICARE, OTHER | END 2022-05-16 10:45 | disposition home or self-care (01) | LOC: ATC 00:21 | DX: I13.0 Hypertensive heart and chronic kidney disease with heart failure and stage 1 through stage 4 chronic kidney disease, or unspecified chronic kidney disease (principal); N18.9 Chronic kidney disease, unspecified; D63.1 Anemia in chronic kidney disease; Z86.73 Personal history of transient ischemic attack (TIA), and cerebral infarction without residual deficits; I48.91 Unspecified atrial fibrillation; Z79.01 Long term (current) use of anticoagulants; Z79.82 Long term (current) use of aspirin; Z88.0 Allergy status to penicillin; Z88.5 Allergy status to narcotic agent; I50.32 Chronic diastolic (congestive) heart failure | CPT/HCPCS: 96365; J2916 ==

== ENCOUNTER → 2022-06-03 | Outpatient (CLI) | payer MEDICARE, OTHER ==
[~2022-06-03] MED LIST changes: +K-TAB ER20 ME1 PO; +METOPROLOL SUCC25 MG PO; +Vitamin B-12100 MCG; +ZANAFLEX413 PO
[2022-06-03 13:29] LABS: BASOPHILS ABSOLUTE AUTO 0.02 K/mm3 (0.00-0.23); BASOPHILS PERCENT AUTO 0 % (0-2); EOSINOPHILS ABSOLUTE AUTO 0.35 K/mm3 (0.00-0.68); EOSINOPHILS PERCENT AUTO 7 % (0-6); Hematocrit 28.3 % (33.0-51.0); IMMATURE GRAN PERCENT AUTO 0 % (0-1); LYMPHOCYTES ABSOLUTE AUTO 0.69 K/mm3 (0.84-5.20); LYMPHOCYTES PERCENT AUTO 14 % (21-46); MONOCYTES ABSOLUTE AUTO 0.49 K/mm3 (0.16-1.47); MONOCYTES PERCENT AUTO 10 % (4-13); Mean Corpuscular HGB 33.3 pg (26.0-34.0); Mean Corpuscular HGB Conc 31.8 g/dL (31.5-36.5); Mean Corpuscular Volume 105 fL (80-100); Mean Platelet Volume 11.6 fL (9.1-12.4); NEUTROPHILS ABSOLUTE AUTO 3.25 K/mm3 (1.96-9.15); NEUTROPHILS PERCENT AUTO 68 % (41-73); Platelet Count 219 K/mm3 (150-400); RDW Coefficient Variation 17.5 % (11.7-14.2); RDW Standard Deviation 67.7 fL (35.1-46.3)
[2022-06-03 13:53] LABS: Creatinine, Blood 1.81 mg/dL (0.40-1.00); Percent Saturation 13.9 % (15.0-50.0); Potassium, Blood 4.7 mmol/L (3.5-5.5)
== END | disposition home or self-care (01) ==
LOC: LAB SHORT 13:24
PROVIDERS: Nurse Practitioner Family
DX: M79.89 Other specified soft tissue disorders (principal); N18.5 Chronic kidney disease, stage 5; D50.9 Iron deficiency anemia, unspecified; R06.00 Dyspnea, unspecified; Z86.73 Personal history of transient ischemic attack (TIA), and cerebral infarction without residual deficits
CPT/HCPCS: 80048; 82728; 83540; 83550; 83880; 85025

== ENCOUNTER 2022-06-05 17:21 | Inpatient (IN) | payer MEDICARE, OTHER ==
[~2022-06-05] VITALS: Ht 165.1 cm; Wt 90.7 kg
[~2022-06-05 17:21] MED LIST changes: -K-TAB ER20 ME1 PO; -METOPROLOL SUCC25 MG PO; -Vitamin B-12100 MCG; -ZANAFLEX413 PO
[2022-06-05 19:19] LABS: Source, Urine Straight Cath
[2022-06-05 19:22] LABS: Appearance, Urine Clear (Clear); Bilirubin, Urine Neg (Neg); Blood, Urine Neg (Neg); Color, Urine Yellow (P-Yellow); Glucose Qualitative, Urine Neg (Neg); Ketones, Urine Neg (Neg); Leukocyte Esterase, Urine Neg (Neg); Nitrite, Urine Neg (Neg); Protein, Urine Neg (Neg); Specific Gravity, Urine 1.015 (1.003-1.022); Urobilinogen, Urine NORM (Normal)
[2022-06-05 19:51] LABS: BASOPHILS ABSOLUTE AUTO 0.04 K/mm3 (0.00-0.23); BASOPHILS PERCENT AUTO 1 % (0-2); EOSINOPHILS ABSOLUTE AUTO 0.23 K/mm3 (0.00-0.68); EOSINOPHILS PERCENT AUTO 5 % (0-6); Hematocrit 33.4 % (33.0-51.0); Hemoglobin 10.7 g/dL (11.5-16.0); IMMATURE GRAN ABSOLUTE AUTO 0.01 K/mm3 (0.00-0.10); IMMATURE GRAN PERCENT AUTO 0 % (0-1); LYMPHOCYTES ABSOLUTE AUTO 0.83 K/mm3 (0.84-5.20); LYMPHOCYTES PERCENT AUTO 17 % (21-46); MONOCYTES ABSOLUTE AUTO 0.27 K/mm3 (0.16-1.47); MONOCYTES PERCENT AUTO 6 % (4-13); Mean Corpuscular HGB 32.7 pg (26.0-34.0); Mean Corpuscular Volume 102 fL (80-100); Mean Platelet Volume 11.1 fL (9.1-12.4); NEUTROPHILS ABSOLUTE AUTO 3.49 K/mm3 (1.96-9.15); NEUTROPHILS PERCENT AUTO 72 % (41-73); Platelet Count 271 K/mm3 (150-400); RDW Coefficient Variation 17.2 % (11.7-14.2); RDW Standard Deviation 65.1 fL (35.1-46.3); Red Blood Cell Count 3.27 M/mm3 (3.80-5.20); White Blood Cell Count 4.87 K/mm3 (4.00-11.30)
[2022-06-05 20:05] LABS: Albumin, Blood 4.3 g/dL (3.4-5.0); Bilirubin, Total 0.9 mg/dL (0.1-1.0); Bun/Creatinine Ratio 13.9 (12.0-20.0); Calcium, Blood 9.8 mg/dL (8.5-10.1); Creatinine, Blood 1.94 mg/dL (0.40-1.00); Globulin, Blood 4.3 g/dL (2.2-4.0); Potassium, Blood 4.4 mmol/L (3.5-5.5); Total Protein, Blood 8.6 g/dL (6.4-8.2)
[2022-06-05] MEDS ORDERED: METOPROLOL SUCC25 MG PO (22:04)
[2022-06-05] MEDS ORDERED: FURO40 PO (22:07)
[2022-06-05] MEDS ORDERED: POTA10T PO (22:09)
[2022-06-05] MEDS ORDERED: ZANAFLEX413 PO (22:10)
[2022-06-05] MEDS ORDERED: Vitamin B-12100 MCG PO (22:11)
--- NOTE | 2022-06-06 00:47 | NUR ---
PATIENT IS A NEW ADMIT FROM THE ED. FOUR PERSON TRANSFER FROM [facility] TO BED. AXO X 2 TO SELF AND DAUGHTER WITH CONFUSION. 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 DENIES CHEST PAIN, SOB, AND N/V. IV ABX INFUSING FROM THE ED. DAUGHTER PRESENT AND REPORTS SHE IS AN O.R. NURSE AND TAKES CARE OF HER MOM AND LIVES WITH HER. PUREWICK IN PLACE FROM ED. DR DANIELS IN TO SEE PATIENT AND REPORTS TO CONTINUE ABXS. ORIENTED TO ROOM AND CALL LIGHT SYSTEM. PATIENT WATCHING SHOW ON PORTABLE DEVICE SET UP BY DAUGHTER. HOMER.
--- NOTE | 2022-06-06 04:40 | NUR ---
SHIFT SUMMARY PATIENT HAD NO ACUTE CHANGES. AXOX 2-3 WITH CONFUSION AT TIMES AND BEDREST. PIV REMAINS INTACT. NORMAL SALINE DC'D. IV ABX INFUSED. 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 PUREWICK IN PLACE. ON ROOM AIR. CONTRACTED RIGHT HAND. DR DANIELS IN TO SEE PATIENT ON ADMIT. DAUGHTER IN ROOM FOR ADMIT AND LEFT FOR NIGHT. WATCHED MOVIE ON HOME ELECTRONIC DEVICE SETUP BY DAUGHTER. CALL LIGHT IN REACH. BED IN LOWEST POSITION. WILL CONTINUE TO MONITOR UNTIL DAY SHIFT NURSE ASSUMES CARE.
[2022-06-06 07:56] LABS: BASOPHILS ABSOLUTE AUTO 0.03 K/mm3 (0.00-0.23); BASOPHILS PERCENT AUTO 1 % (0-2); EOSINOPHILS ABSOLUTE AUTO 0.14 K/mm3 (0.00-0.68); EOSINOPHILS PERCENT AUTO 4 % (0-6); Hematocrit 25.3 % (33.0-51.0); Hemoglobin 8.4 g/dL (11.5-16.0); IMMATURE GRAN ABSOLUTE AUTO 0.01 K/mm3 (0.00-0.10); IMMATURE GRAN PERCENT AUTO 0 % (0-1); LYMPHOCYTES ABSOLUTE AUTO 0.79 K/mm3 (0.84-5.20); LYMPHOCYTES PERCENT AUTO 22 % (21-46); MONOCYTES ABSOLUTE AUTO 0.35 K/mm3 (0.16-1.47); MONOCYTES PERCENT AUTO 10 % (4-13); Mean Corpuscular HGB 33.6 pg (26.0-34.0); Mean Corpuscular HGB Conc 33.2 g/dL (31.5-36.5); Mean Corpuscular Volume 101 fL (80-100); NEUTROPHILS ABSOLUTE AUTO 2.27 K/mm3 (1.96-9.15); NEUTROPHILS PERCENT AUTO 63 % (41-73); Platelet Count 192 K/mm3 (150-400); RDW Coefficient Variation 16.9 % (11.7-14.2); RDW Standard Deviation 63.3 fL (35.1-46.3); White Blood Cell Count 3.59 K/mm3 (4.00-11.30)
[2022-06-06 08:22] LABS: Percent Saturation 12.8 % (15.0-50.0)
[2022-06-06 08:42] LABS: Albumin, Blood 3.1 g/dL (3.4-5.0); Bilirubin, Total 0.6 mg/dL (0.1-1.0); Bun/Creatinine Ratio 14.5 (12.0-20.0); Calcium, Blood 8.7 mg/dL (8.5-10.1); Creatinine, Blood 1.86 mg/dL (0.40-1.00); Globulin, Blood 3.2 g/dL (2.2-4.0); Potassium, Blood 4.5 mmol/L (3.5-5.5)
[2022-06-06 08:46] LABS: Total Protein, Blood 6.3 g/dL (6.4-8.2)
[2022-06-06 11:27] LABS: Triglycerides 42 mg/dL (30-160)
--- NOTE | 2022-06-06 16:34 | NUR ---
PT AOX3 AND COOPERATIVE OF CARE. PT DENIED ANY PAIN TODAY AND WAS ABLE TO EAT A BIT AT LUNCH. PT REPORTED NAUSEA AFTER AND WAS TREATED PER EMAR. PT REFUSED ORAL FLAGYL AND IT WAS CHANGED TO IV AGAIN AFTER NOTIFYING DR PAREKH. CALL ALARM IS WITHIN REACH WILL CONTINUE TO MONITOR.
--- NOTE | 2022-06-06 17:20 | NUR ---
TRANSFERING CARE TO [facility].
[2022-06-07 06:44] LABS: BASOPHILS ABSOLUTE AUTO 0.03 K/mm3 (0.00-0.23); BASOPHILS PERCENT AUTO 1 % (0-2); EOSINOPHILS ABSOLUTE AUTO 0.29 K/mm3 (0.00-0.68); EOSINOPHILS PERCENT AUTO 8 % (0-6); Hematocrit 25.8 % (33.0-51.0); Hemoglobin 8.4 g/dL (11.5-16.0); IMMATURE GRAN PERCENT AUTO 0 % (0-1); LYMPHOCYTES PERCENT AUTO 22 % (21-46); MONOCYTES ABSOLUTE AUTO 0.37 K/mm3 (0.16-1.47); MONOCYTES PERCENT AUTO 10 % (4-13); Mean Corpuscular HGB 32.9 pg (26.0-34.0); Mean Corpuscular HGB Conc 32.6 g/dL (31.5-36.5); Mean Corpuscular Volume 101 fL (80-100); Mean Platelet Volume 10.9 fL (9.1-12.4); NEUTROPHILS PERCENT AUTO 59 % (41-73); Platelet Count 217 K/mm3 (150-400); RDW Coefficient Variation 16.8 % (11.7-14.2); RDW Standard Deviation 62.5 fL (35.1-46.3); Red Blood Cell Count 2.55 M/mm3 (3.80-5.20); White Blood Cell Count 3.59 K/mm3 (4.00-11.30)
[2022-06-07 07:02] LABS: Bun/Creatinine Ratio 15.1 (12.0-20.0); Calcium, Blood 8.7 mg/dL (8.5-10.1); Creatinine, Blood 1.86 mg/dL (0.40-1.00); Potassium, Blood 4.4 mmol/L (3.5-5.5)
--- NOTE | 2022-06-07 14:36 | NUR ---
Received call from Pt's Primary RN Get reporting daughter at bedside. Upon entring room Pt and daughter appears somewhat researved and after introducing myself daughter becomes more anxious. Educated on PC supportive role. Neither daughter or Pt want to have any discussions at this time. Palliative Care will remain available
--- NOTE | 2022-06-07 18:14 | NUR ---
SHIFT SUMMARY: PT A&O X2-3. WHEN ASKED, SHE DID NOT KNOW WHETHER SHE HAD PAIN OR WAS JUST NERVOUS. PT HAS BEEN UPSET THIS SHIFT DUE TO FINDING OUT ABOUT HF. PT CHANGED TO SOFT DIET BUT HAS NOT HAD APPETITE FOR FOOD. GAVE PT PO ABX. PT STATES SHE HAS NOT HAD NAUSEA SINCE PO ANX BUT IS HAVING NEW PAIN IN L. FOOT. ROTATING INWARD. BED IN LOWEST POSITION. CALL LIGHT IN REACH. WILL CONTINUE TO MONITOR.
--- NOTE | 2022-06-08 05:18 | NUR ---
PATIENT ALERT X2, CONTROLLED AFIB ON TELE, PATIENT HAD A SIX BEAT RUN OF VTACH AT 0330, ROOM AIR, MAX ASSIST, PUREWICK CHANGED AND PATENT, RIGHT WRIST CONTRACTURE, SOFT FOOD, MEDS WHOLE WITH APPLESAUCE ONE AT A TIME, PATIENT BECAME NAUSEATED AFTER PO FLAGYL GIVEN, GAVE ZOFRAN FOR NAUSEA, 20 LAC SL, POSSIBLE D/C HOME TODAY, NO EVENTS OVERNIGHT
[2022-06-08 07:20] LABS: Hematocrit 29.5 % (33.0-51.0); Hemoglobin 9.3 g/dL (11.5-16.0)
[2022-06-08] MEDS ORDERED: LEVO750 PO (11:11)
[2022-06-08] MEDS ORDERED: METR500 PO (11:11)
[2022-06-08] MEDS ORDERED: METAMUCIL POWD798 GM PO (11:12)
[2022-06-08] MEDS ORDERED: VISBIOME 112.51 EACH PO (11:13)
[2022-06-08] MEDS ORDERED: ONDA4ODT MM (11:15)
--- NOTE | 2022-06-08 12:29 | NUR ---
Patient tolerating PO intake and PO meds this morning. Premedicated w/ Zofran before giving oral ABX. Plan is to discharge home today. Reviewed discharge instructions with pt/daughter. Meds faxed to [facility]. Pt left at 1200 via wheelchair transport.
== END 2022-06-08 11:59 | disposition home health service (06) | DRG 391 ==
LOC: ER 17:21 → MEDS 17:22
PROVIDERS: Family Medicine; Student in an Organized Health Care Education/Training Program; ADMIT Student in an Organized Health Care Education/Training Program
DX: K57.32 Diverticulitis of large intestine without perforation or abscess without bleeding (principal); I50.33 Acute on chronic diastolic (congestive) heart failure; I48.20 Chronic atrial fibrillation, unspecified; I13.0 Hypertensive heart and chronic kidney disease with heart failure and stage 1 through stage 4 chronic kidney disease, or unspecified chronic kidney disease; N18.4 Chronic kidney disease, stage 4 (severe); D50.9 Iron deficiency anemia, unspecified; R74.8 Abnormal levels of other serum enzymes; D63.1 Anemia in chronic kidney disease; Z91.14 Patient's other noncompliance with medication regimen; Z28.21 Immunization not carried out because of patient refusal; Z86.73 Personal history of transient ischemic attack (TIA), and cerebral infarction without residual deficits; Z90.710 Acquired absence of both cervix and uterus; Z98.890 Other specified postprocedural states; Z90.49 Acquired absence of other specified parts of digestive tract; Z90.11 Acquired absence of right breast and nipple; Z88.0 Allergy status to penicillin; Z88.2 Allergy status to sulfonamides; Z79.01 Long term (current) use of anticoagulants; Z79.82 Long term (current) use of aspirin; Z79.899 Other long term (current) drug therapy
CPT/HCPCS: 36415; 51701; 71046; 74177; 80048; 80053; 81003; 82607; 82728; 82746; 83540; 83550; 83690; 83735; 84478; 84484; 85014; 85018; 85025; 93005; 93010; 93306; 96361; 96365; 96365-59; 96366; 96367; 96372; 96375; 97162; 97530; 99285-25; A9270; G0378; J0696; J1644; J1956; J2405; J7030; P9612; Q9967

== ENCOUNTER → 2022-06-30 | Outpatient (CLI) | payer MEDICARE, OTHER ==
[~2022-06-30] MED LIST changes: +FURO40 PO; +LEVO750 PO; +METAMUCIL POWD798 GM PO; +METOPROLOL SUCC25 MG PO; +METR500 PO; +ONDA4ODT MM; +VISBIOME 112.51 EACH PO; +Vitamin B-12100 MCG PO; +ZANAFLEX413 PO
[2022-06-30 19:41] LABS: BASOPHILS ABSOLUTE AUTO 0.02 K/mm3 (0.00-0.23); BASOPHILS PERCENT AUTO 1 % (0-2); EOSINOPHILS ABSOLUTE AUTO 0.28 K/mm3 (0.00-0.68); EOSINOPHILS PERCENT AUTO 7 % (0-6); Hematocrit 32.2 % (33.0-51.0); Hemoglobin 10.3 g/dL (11.5-16.0); IMMATURE GRAN ABSOLUTE AUTO 0.01 K/mm3 (0.00-0.10); IMMATURE GRAN PERCENT AUTO 0 % (0-1); LYMPHOCYTES PERCENT AUTO 36 % (21-46); MONOCYTES ABSOLUTE AUTO 0.42 K/mm3 (0.16-1.47); MONOCYTES PERCENT AUTO 11 % (4-13); Mean Corpuscular HGB 32.5 pg (26.0-34.0); Mean Corpuscular Volume 102 fL (80-100); Mean Platelet Volume 11.6 fL (9.1-12.4); NEUTROPHILS PERCENT AUTO 46 % (41-73); Platelet Count 206 K/mm3 (150-400); RDW Coefficient Variation 17.3 % (11.7-14.2); RDW Standard Deviation 65.3 fL (35.1-46.3); Red Blood Cell Count 3.17 M/mm3 (3.80-5.20); White Blood Cell Count 3.93 K/mm3 (4.00-11.30)
[2022-06-30 21:18] LABS: Albumin, Blood 3.8 g/dL (3.4-5.0); Anion Gap 5 mmol/L (6-16); Blood Urea Nitrogen 23 mg/dL (8-24); Bun/Creatinine Ratio 12.6 (12.0-20.0); CO2, Blood 27 mmol/L (21-32); Calcium, Blood 9.5 mg/dL (8.5-10.1); Chloride, Blood 105 mmol/L (98-108); Creatinine, Blood 1.83 mg/dL (0.40-1.00); Glomerular Filtration Rate 26 (60-); Glucose, Blood 110 mg/dL (70-99); Phosphorus, Blood 3.8 mg/dL (2.5-4.9); Potassium, Blood 4.7 mmol/L (3.5-5.5); Sodium, Blood 137 mmol/L (136-145)
== END | disposition home or self-care (01) ==
LOC: LAB SHORT 16:25
PROVIDERS: Internal Medicine Nephrology
DX: N18.4 Chronic kidney disease, stage 4 (severe) (principal); E55.9 Vitamin D deficiency, unspecified; I50.30 Unspecified diastolic (congestive) heart failure; I69.351 Hemiplegia and hemiparesis following cerebral infarction affecting right dominant side; M62.81 Muscle weakness (generalized); R60.9 Edema, unspecified; R11.0 Nausea; E03.8 Other specified hypothyroidism
CPT/HCPCS: 80069; 83970; 85025

== ENCOUNTER → 2022-07-21 | Outpatient (CLI) | payer MEDICARE, OTHER ==
[2022-07-21 15:09] LABS: Albumin, Blood 3.6 g/dL (3.4-5.0); Albumin/Globulin Ratio 0.9 (0.8-1.8); Bilirubin, Total 0.8 mg/dL (0.1-1.0); Bun/Creatinine Ratio 13.2 (12.0-20.0); Calcium, Blood 9.2 mg/dL (8.5-10.1); Creatinine, Blood 2.05 mg/dL (0.40-1.00); Phosphorus, Blood 3.5 mg/dL (2.5-4.9); Potassium, Blood 4.3 mmol/L (3.5-5.5); Thyroid Stimulating Hormone 9.72 uIU/mL (0.360-4.800); Total Protein, Blood 7.6 g/dL (6.4-8.2)
== END | disposition home or self-care (01) ==
LOC: LAB SHORT 13:06
PROVIDERS: Nurse Practitioner Family
DX: E03.8 Other specified hypothyroidism (principal); I69.351 Hemiplegia and hemiparesis following cerebral infarction affecting right dominant side; I13.0 Hypertensive heart and chronic kidney disease with heart failure and stage 1 through stage 4 chronic kidney disease, or unspecified chronic kidney disease; M62.81 Muscle weakness (generalized); I50.30 Unspecified diastolic (congestive) heart failure; N18.4 Chronic kidney disease, stage 4 (severe); R11.0 Nausea; R60.9 Edema, unspecified
CPT/HCPCS: 80053; 83690; 83880; 84100; 84443

== ENCOUNTER → 2022-09-09 | Outpatient (CLI) | payer MEDICARE, OTHER ==
[2022-09-09 17:52] LABS: Source, Urine Clean Catch
[2022-09-09 19:29] LABS: BASOPHILS ABSOLUTE AUTO 0.02 K/mm3 (0.00-0.23); BASOPHILS PERCENT AUTO 1 % (0-2); EOSINOPHILS ABSOLUTE AUTO 0.08 K/mm3 (0.00-0.68); EOSINOPHILS PERCENT AUTO 3 % (0-6); Hematocrit 29.1 % (33.0-51.0); Hemoglobin 9.3 g/dL (11.5-16.0); IMMATURE GRAN ABSOLUTE AUTO 0.01 K/mm3 (0.00-0.10); IMMATURE GRAN PERCENT AUTO 0 % (0-1); LYMPHOCYTES ABSOLUTE AUTO 0.75 K/mm3 (0.84-5.20); LYMPHOCYTES PERCENT AUTO 25 % (21-46); MONOCYTES PERCENT AUTO 10 % (4-13); Mean Corpuscular HGB 33.2 pg (26.0-34.0); Mean Corpuscular Volume 104 fL (80-100); NEUTROPHILS ABSOLUTE AUTO 1.81 K/mm3 (1.96-9.15); NEUTROPHILS PERCENT AUTO 61 % (41-73); Platelet Count 170 K/mm3 (150-400); RDW Coefficient Variation 17.6 % (11.7-14.2); RDW Standard Deviation 67.4 fL (35.1-46.3); White Blood Cell Count 2.97 K/mm3 (4.00-11.30)
[2022-09-09 19:56] LABS: Albumin/Globulin Ratio 1.1 (0.8-1.8); Bilirubin, Total 0.8 mg/dL (0.1-1.0); Bun/Creatinine Ratio 17.8 (12.0-20.0); Calcium, Blood 9.3 mg/dL (8.5-10.1); Creatinine, Blood 2.13 mg/dL (0.40-1.00); Globulin, Blood 3.6 g/dL (2.2-4.0); Potassium, Blood 4.2 mmol/L (3.5-5.5); Thyroid Stimulating Hormone 4.79 uIU/mL (0.360-4.800); Total Protein, Blood 7.6 g/dL (6.4-8.2)
[2022-09-09 20:01] LABS: Bilirubin, Urine Neg (Neg); Blood, Urine Neg (Neg); Glucose Qualitative, Urine Neg (Neg); Ketones, Urine Neg (Neg); Leukocyte Esterase, Urine Neg (Neg); Nitrite, Urine Neg (Neg); Protein, Urine 1+ (Neg); Specific Gravity, Urine 1.015 (1.003-1.022); Urobilinogen, Urine NORM (Normal)
[2022-09-09 20:10] LABS: BASOPHILS ABSOLUTE MAN 0.05 K/mm3 (0.00-0.23); BASOPHILS PERCENT MAN 2 % (0-2); EOSINOPHILS ABSOLUTE MAN 0.11 K/mm3 (0.00-0.68); EOSINOPHILS PERCENT MAN 4 % (0-6); LYMPHOCYTES ABSOLUTE MAN 0.83 K/mm3 (0.84-5.20); LYMPHOCYTES PERCENT MAN 28 % (21-46); MONOCYTES ABSOLUTE MAN 0.05 K/mm3 (0.16-1.47); MONOCYTES PERCENT MAN 2 % (4-13); SEG NEUTROPHILS PERCENT MAN 64 % (41-73); TOTAL CELLS COUNTED 100
[2022-09-09 20:19] LABS: Color, Urine Yellow (P-Yellow)
[2022-09-09 20:20] LABS: Appearance, Urine Clear (Clear)
== END | disposition home or self-care (01) ==
LOC: LAB SHORT 17:47 → LAB 17:47
PROVIDERS: Nurse Practitioner Family
DX: E05.90 Thyrotoxicosis, unspecified without thyrotoxic crisis or storm (principal); I10 Essential (primary) hypertension; R60.9 Edema, unspecified; R55 Syncope and collapse; R32 Unspecified urinary incontinence
CPT/HCPCS: 80053; 84443; 85025; 87086

== ENCOUNTER → 2022-10-11 | Outpatient (CLI) | payer MEDICARE, OTHER | END | disposition home or self-care (01) | LOC: LAB SHORT 07:24 → LAB 07:24 | DX: I10 Essential (primary) hypertension (principal); R60.9 Edema, unspecified ==

== ENCOUNTER → 2022-10-19 | Outpatient (CLI) | payer MEDICARE, OTHER ==
[2022-10-20 11:00] LABS: Stool Occult Bld Immuno 1 Negative (NEGATIVE)
== END | disposition home or self-care (01) ==
LOC: LAB 11:33 → LAB SHORT 11:33
PROVIDERS: Nurse Practitioner Family
DX: Z12.11 Encounter for screening for malignant neoplasm of colon (principal)
CPT/HCPCS: 82274

== ENCOUNTER → 2022-10-26 | Outpatient (CLI) | payer MEDICARE, OTHER ==
[2022-10-26 19:47] LABS: BASOPHILS ABSOLUTE AUTO 0.02 K/mm3 (0.00-0.23); BASOPHILS PERCENT AUTO 1 % (0-2); EOSINOPHILS ABSOLUTE AUTO 0.09 K/mm3 (0.00-0.68); EOSINOPHILS PERCENT AUTO 3 % (0-6); Hematocrit 31.9 % (33.0-51.0); Hemoglobin 10.2 g/dL (11.5-16.0); IMMATURE GRAN PERCENT AUTO 0 % (0-1); LYMPHOCYTES ABSOLUTE AUTO 0.76 K/mm3 (0.84-5.20); LYMPHOCYTES PERCENT AUTO 29 % (21-46); MONOCYTES ABSOLUTE AUTO 0.32 K/mm3 (0.16-1.47); MONOCYTES PERCENT AUTO 12 % (4-13); Mean Corpuscular HGB 33.4 pg (26.0-34.0); Mean Corpuscular Volume 105 fL (80-100); Mean Platelet Volume 11.7 fL (9.1-12.4); NEUTROPHILS ABSOLUTE AUTO 1.43 K/mm3 (1.96-9.15); NEUTROPHILS PERCENT AUTO 55 % (41-73); Platelet Count 168 K/mm3 (150-400); RDW Coefficient Variation 17.1 % (11.7-14.2); RDW Standard Deviation 65.8 fL (35.1-46.3); Red Blood Cell Count 3.05 M/mm3 (3.80-5.20); White Blood Cell Count 2.62 K/mm3 (4.00-11.30)
[2022-10-26 20:33] LABS: Albumin, Blood 4.1 g/dL (3.4-5.0); Albumin/Globulin Ratio 1.2 (0.8-1.8); Bilirubin, Total 1.1 mg/dL (0.1-1.0); Bun/Creatinine Ratio 17.1 (12.0-20.0); Calcium, Blood 9.4 mg/dL (8.5-10.1); Creatinine, Blood 1.99 mg/dL (0.40-1.00); Globulin, Blood 3.5 g/dL (2.2-4.0); Potassium, Blood 4.1 mmol/L (3.5-5.5); Thyroid Stimulating Hormone 5.79 uIU/mL (0.360-4.800); Total Protein, Blood 7.6 g/dL (6.4-8.2)
== END | disposition home or self-care (01) ==
LOC: LAB SHORT 18:53 → LAB 18:53
PROVIDERS: Family Medicine; Nurse Practitioner Family
DX: D72.9 Disorder of white blood cells, unspecified (principal); N18.5 Chronic kidney disease, stage 5; Z79.899 Other long term (current) drug therapy
CPT/HCPCS: 80053; 83880; 84443; 85025

== ENCOUNTER → 2022-11-14 | Outpatient (CLI) | payer MEDICARE, OTHER ==
[2022-11-14 19:02] LABS: Albumin, Blood 3.9 g/dL (3.4-5.0); Anion Gap 5 mmol/L (6-16); Blood Urea Nitrogen 48 mg/dL (8-24); Bun/Creatinine Ratio 20.3 (12.0-20.0); CO2, Blood 33 mmol/L (21-32); Calcium, Blood 9.4 mg/dL (8.5-10.1); Chloride, Blood 104 mmol/L (98-108); Creatinine, Blood 2.36 mg/dL (0.40-1.00); Glomerular Filtration Rate 19 (60-); Glucose, Blood 97 mg/dL (70-99); Potassium, Blood 4.2 mmol/L (3.5-5.5); Sodium, Blood 142 mmol/L (136-145)
== END | disposition home or self-care (01) ==
LOC: LAB SHORT 16:27 → LAB 16:27
PROVIDERS: Nurse Practitioner Family
DX: I12.9 Hypertensive chronic kidney disease with stage 1 through stage 4 chronic kidney disease, or unspecified chronic kidney disease (principal); N18.4 Chronic kidney disease, stage 4 (severe)
CPT/HCPCS: 80069

== ENCOUNTER → 2022-12-12 | Outpatient (CLI) | payer MEDICARE, OTHER ==
[2022-12-13 18:34] LABS: Protein, Urine Random 19.5 mg/dL (0.0-11.9); Protein/Creat Ratio, Ur Random 0.2
== END | disposition home or self-care (01) ==
LOC: LAB 07:00 → LAB SHORT 07:00
PROVIDERS: Hospitalist
DX: N18.4 Chronic kidney disease, stage 4 (severe) (principal)
CPT/HCPCS: 82570; 84156

== ENCOUNTER → 2022-12-13 | Outpatient (CLI) | payer MEDICARE, OTHER ==
[2022-12-13 13:06] LABS: Source, Urine Voided
[2022-12-13 14:17] LABS: Appearance, Urine Clear (Clear); Bilirubin, Urine Neg (Neg); Blood, Urine Neg (Neg); Color, Urine Yellow (P-Yellow); Glucose Qualitative, Urine Neg (Neg); Ketones, Urine Neg (Neg); Leukocyte Esterase, Urine Neg (Neg); Nitrite, Urine Neg (Neg); Protein, Urine 1+ (Neg); Urobilinogen, Urine NORM (Normal)
[2022-12-13 18:00] LABS: BASOPHILS ABSOLUTE AUTO 0.05 K/mm3 (0.00-0.23); BASOPHILS PERCENT AUTO 2 % (0-2); EOSINOPHILS ABSOLUTE AUTO 0.12 K/mm3 (0.00-0.68); EOSINOPHILS PERCENT AUTO 4 % (0-6); Hematocrit 34.5 % (33.0-51.0); IMMATURE GRAN PERCENT AUTO 0 % (0-1); LYMPHOCYTES ABSOLUTE AUTO 1.04 K/mm3 (0.84-5.20); LYMPHOCYTES PERCENT AUTO 37 % (21-46); MONOCYTES ABSOLUTE AUTO 0.37 K/mm3 (0.16-1.47); MONOCYTES PERCENT AUTO 13 % (4-13); Mean Corpuscular HGB 33.2 pg (26.0-34.0); Mean Corpuscular HGB Conc 31.9 g/dL (31.5-36.5); Mean Corpuscular Volume 104 fL (80-100); Mean Platelet Volume 12.5 fL (9.1-12.4); NEUTROPHILS ABSOLUTE AUTO 1.27 K/mm3 (1.96-9.15); NEUTROPHILS PERCENT AUTO 45 % (41-73); Platelet Count 153 K/mm3 (150-400); RDW Coefficient Variation 15.9 % (11.7-14.2); RDW Standard Deviation 61.5 fL (35.1-46.3); Red Blood Cell Count 3.31 M/mm3 (3.80-5.20); White Blood Cell Count 2.85 K/mm3 (4.00-11.30)
[2022-12-13 23:21] LABS: Albumin, Blood 4.1 g/dL (3.4-5.0); Anion Gap 5 mmol/L (6-16); Blood Urea Nitrogen 45 mg/dL (8-24); Bun/Creatinine Ratio 21.2 (12.0-20.0); CO2, Blood 30 mmol/L (21-32); Calcium, Blood 9.5 mg/dL (8.5-10.1); Chloride, Blood 106 mmol/L (98-108); Creatinine, Blood 2.12 mg/dL (0.40-1.00); Ferritin, Serum 57 ng/mL (8-252); Glomerular Filtration Rate 22 (60-); Glucose, Blood 88 mg/dL (70-99); Iron Serum 67 ug/dL (50-170); Percent Saturation 17.2 % (15.0-50.0); Phosphorus, Blood 3.6 mg/dL (2.5-4.9); Potassium, Blood 4.4 mmol/L (3.5-5.5); Sodium, Blood 141 mmol/L (136-145); Total Iron Binding Capacity 389 ug/dL (250-450)
== END | disposition home or self-care (01) ==
LOC: LAB 13:02 → LAB SHORT 13:02
PROVIDERS: Hospitalist; Nurse Practitioner Family
DX: N18.4 Chronic kidney disease, stage 4 (severe) (principal); D63.1 Anemia in chronic kidney disease; E03.9 Hypothyroidism, unspecified
CPT/HCPCS: 80069; 82728; 83540; 83550; 84443; 85025

== ENCOUNTER → 2023-02-09 | Outpatient (CLI) | payer MEDICARE, OTHER ==
[~2023-02-09] MED LIST changes: +Colace100 MG PO; +FAMO40 PO; +FOLI1 PO; +LEVSOD25 PO; +SENNA LAXATIVE8.6 MG PO; +SOAANZ40 M1 PO
[2023-02-09 15:18] LABS: Source, Urine Clean Catch
[2023-02-09 18:42] LABS: Appearance, Urine Clear (Clear); Bilirubin, Urine Neg (Neg); Blood, Urine Neg (Neg); Color, Urine Yellow (P-Yellow); Glucose Qualitative, Urine Neg (Neg); Ketones, Urine Neg (Neg); Leukocyte Esterase, Urine Neg (Neg); Nitrite, Urine Neg (Neg); Protein, Urine Neg (Neg); Urobilinogen, Urine NORM (Normal)
[2023-02-09 19:38] LABS: Protein, Urine Random 7.7 mg/dL (0.0-11.9); Protein/Creat Ratio, Ur Random 0.2
== END | disposition home or self-care (01) ==
LOC: LAB 14:35 → LAB SHORT 14:35
PROVIDERS: Hospitalist
DX: N18.4 Chronic kidney disease, stage 4 (severe) (principal)
CPT/HCPCS: 81003; 82570; 84156

== ENCOUNTER 2023-02-18 03:58 | Inpatient (IN) | payer MEDICARE, OTHER ==
[2023-02-18] VITALS (9 sets, daily range): BP systolic 122–145; BP diastolic 59–98
[~2023-02-18] VITALS: Ht 162.6 cm; Wt 60.9 kg
[~2023-02-18 03:58] MED LIST changes: -Colace100 MG PO; -FAMO40 PO; -FOLI1 PO; -LEVSOD25 PO; -SENNA LAXATIVE8.6 MG PO; -SOAANZ40 M1 PO
[2023-02-18 04:59] LABS: BASOPHILS ABSOLUTE AUTO 0.02 K/mm3 (0.00-0.23); BASOPHILS PERCENT AUTO 1 % (0-2); EOSINOPHILS ABSOLUTE AUTO 0.02 K/mm3 (0.00-0.68); EOSINOPHILS PERCENT AUTO 1 % (0-6); Hematocrit 28.5 % (33.0-51.0); Hemoglobin 9.5 g/dL (11.5-16.0); IMMATURE GRAN ABSOLUTE AUTO 0.01 K/mm3 (0.00-0.10); IMMATURE GRAN PERCENT AUTO 0 % (0-1); LYMPHOCYTES ABSOLUTE AUTO 0.38 K/mm3 (0.84-5.20); LYMPHOCYTES PERCENT AUTO 15 % (21-46); MONOCYTES ABSOLUTE AUTO 0.45 K/mm3 (0.16-1.47); MONOCYTES PERCENT AUTO 17 % (4-13); Mean Corpuscular HGB 34.2 pg (26.0-34.0); Mean Corpuscular HGB Conc 33.3 g/dL (31.5-36.5); Mean Corpuscular Volume 103 fL (80-100); Mean Platelet Volume 12.4 fL (9.1-12.4); NEUTROPHILS ABSOLUTE AUTO 1.72 K/mm3 (1.96-9.15); NEUTROPHILS PERCENT AUTO 66 % (41-73); Platelet Count 93 K/mm3 (150-400); RDW Standard Deviation 64.2 fL (35.1-46.3); Red Blood Cell Count 2.78 M/mm3 (3.80-5.20)
[2023-02-18 05:40] LABS: Albumin, Blood 4.2 g/dL (3.4-5.0); Bun/Creatinine Ratio 27.8 (12.0-20.0); Creatinine, Blood 2.7 mg/dL (0.40-1.00); Globulin, Blood 4.2 g/dL (2.2-4.0); Total Protein, Blood 8.4 g/dL (6.4-8.2)
[2023-02-18 05:50] LABS: Source, Urine Straight Cath
[2023-02-18 06:02] LABS: Bilirubin, Urine Neg (Neg); Blood, Urine Neg (Neg); Glucose Qualitative, Urine Neg (Neg); Ketones, Urine Neg (Neg); Leukocyte Esterase, Urine Neg (Neg); Nitrite, Urine Neg (Neg); Protein, Urine 1+ (Neg); Urobilinogen, Urine NORM (Normal)
[2023-02-18 06:07] LABS: Appearance, Urine Clear (Clear); Color, Urine Yellow (P-Yellow)
[2023-02-18 06:15] LABS: Magnesium, Blood 2.6 mg/dL (1.6-2.4); Prolactin 10.7 ng/mL (2.74-19.64)
[2023-02-18 06:29] LABS: Base Excess Venous 0.5 mmol/L; Bicarbonate Venous 24.4 mmol/L (24.0-30.0); pH Blood Venous 7.35 (7.34-7.37)
[2023-02-18 07:21] LABS: Influenza A, PCR NEGATIVE (NEGATIVE); Influenza B, PCR NEGATIVE (NEGATIVE); Resp Syncytial Virus, PCR NEGATIVE (NEGATIVE); SARS-Cov-2 (COVID-19) PCR, MMC NEGATIVE (NEGATIVE)
[2023-02-18] MEDS ORDERED: FOLI1 PO (11:46)
--- NOTE | 2023-02-18 12:14 | NUR ---
ER ADMIT PATIENT ARRIVED TO MEDICAL FLOOR AT 1130 VIA GURNEY. PATIENT TRANSFERED TO BED. UPON REMOVING ADDITIONAL LINNEN FOR ACCURATE WEIGHT MEASUREMENT PATIENT HAD A 60-SECOND EPISODE OF ABSENT GAZING TO THE RIGHT, NO RESPONSE TO TOUCH OR SOUND, RIGIDITY OF MUSCLES ESPECIALLY IN UPPER BODY AND HOLDING HER BREATH. PER PATIENTS DAUGHTER, THIS IS WHAT SHE HAD BEEN NOTICING AT HOME ALSO. ADMISSION HISTORY OBTAINED FROM PATIENTS DAUGHTER. COPY OF MED LIST PROVIDED. HER DAUGHTER APPLIES RIGHT WRIST SPLINT, STATES PATIENT WEARS IT DURING THE DAY. PATIENT IS ABLE TO PROVIDE LIMITED HISTORY AND IS VERY FATIGUED. PATIENT AND DAUGHTER ORIENTED TO THE UNIT AND ROOM. WILL CONT TO MONITOR.
--- NOTE | 2023-02-18 13:02 | NUR ---
DURING PERSONAL CARE PATIENT EXPERIENCED ANOTHER EPISODE OF ABSENT GAIZING, RIGIDITY AND NON RESPONSIVENESS. RECEIVED CALL FROM TELEMETRY, JOYCEM NOTED TO BE A-FLUTTER WITH A HEART RATE OF 28. ONCE PATIENT RECOVERED HR NOTED TO BE 56. CALL PLACED TO . ORDER FOR LABS RECEIVED. WILL CONT TO MONITOR.
[2023-02-18] MEDS ORDERED: Acetaminophen650 M1 PO (13:14)
[2023-02-18] MEDS ORDERED: FAMO40 PO (13:15)
[2023-02-18] MEDS ORDERED: MIRALAX17 GM PO (13:16)
[2023-02-18] MEDS ORDERED: LEVSOD25 PO (13:16)
[2023-02-18] MEDS ORDERED: SENNA LAXATIVE8.6 MG PO (13:17)
[2023-02-18] MEDS ORDERED: Colace100 MG PO (13:17)
[2023-02-18] MEDS ORDERED: SIME80CH PO (13:18)
[2023-02-18] MEDS ORDERED: SOAANZ40 M1 PO (13:19)
--- NOTE | 2023-02-18 14:30 | NUR ---
TRANSFER TO PCU PATIENT TRANSFERED VIA HOSPITAL BED TO PCU. REPORT CALLED PRIOR. PATIENT AND DAUGHTER UPDATED. IN TO CONSULT ON PATIENT, REQUESTED CALL WHEN PATIENTS DAUGHTER ARRIVES, PCU STAFF UPDATED. PATIENT ALERT AND NO FURTHER EPISODES NOTED.
--- NOTE | 2023-02-18 15:47 | NUR ---
PT SAID SHE HAD A BOWEL MOVEMENT AND NEEDED TO BE CHANGED. MYSELF AND ANOTHER NURSE ROLLED HER TO HER RIGHT SIDE AND CHECKED HER BRIEF, SHE WAS DRY AND DID NOT HAVE A BOWEL MOVEMENT. WE HELPED HER TO LAY BACK FLAT AND SECURED HER BRIEF IN PLACE. AT APPROXIMATELY 1541 RIGHT AFTER WE WERE DONE SECURING HER BRIEF HER HR DROPPED INTO THE 20'S AND THEN QUICKLY DOWN TO 0, SHE WAS STARING BLANKLY AT THE CEILING AND NOT TALKING. SEVERAL NURSES CAME INTO ROOM AND ATROPINE WAS ADMINISTERED PER EMAR BY CHARGE NURSE, EAR CLIP THAT WAS READING HER OXYGEN SATURATION CAME OFF SO WE WERE UNABLE TO GET AN ACCURATE READING OF HER OXYGEN LEVEL, OXYGEN VIA NC WAS TURNED ALL THE WAY UP. AFTER APPROXIMATELY 60 SECONDS FROM THE START OF HER EPISODE HER HR STARTED TO COME BACK UP AND SHE STARTED TALKING AGAIN. POST VITALS HR 105, RESPIRATIONS 18, BP 145/98, OXYGEN SATURATION 98. PT IS CURRENTLY STABLE, RESTING IN BED, CALL LIGHT WITHIN REACH.
--- NOTE | 2023-02-18 17:04 | NUR ---
SHIFT SUMMARY NO ACUTE CHANGES, SEE PREVIOUS NOTES. PT ON 2L NC MAINTAINING 02 SATURATION ABOVE 92%, PT CONTINUES TO DENY SOB, L SIDE PAIN FROM FALL ON 02/15/2023. HR AFIB 60'S-90'S, LAST BP OF 145/98, PT DENIES CHEST PAIN/PRESSURE EXCEPT FOR THAT LEFT SIDE FROM FALL ON 02/15/23, PT HAS NOT HAD ANOTHER EPISODE DESCRIBED IN PREVIOUS NOTES. IV TO LEFT FOREARM IS PATENT, FLUSHED, AND SALINE LOCKED. DAUGHTER OF PATIENT WAS HERE DURING CONSULTATION WITH HARDWARE TEST ENGINEER AND IMPACT HAMMER OPERATOR BUT WENT HOME TO REST. OF NOW, PLAN PER HARDWARE TEST ENGINEER IS TO TAKE PT OFF HOME MEDS OF METOPROLOL AND XARELTO TO SEE PT CONTINUES TO HAVE EPISODES OF LOW HR AND PAUSES WHEN MEDS ARE OUT OF HER SYSTEM APPROXIMATELY 48 HOURS AFTER LAST DOSE, IF PT CONTINUES TO HAVE EPISODES PLAN IS FOR PACEMAKER. PT CURRENTLY HAS ATROPINE AT BEDSIDE, EPI HAS BEEN REQUESTED FROM PHARMACY TO ALSO PUT AT BEDSIDE. PT IS CURRENTLY RESTING IN BED WITH CALL LIGHT WITHIN REACH.
--- NOTE | 2023-02-19 00:07 | NUR ---
UPDATE DURING VITALS AT 0000, THIS RN ASKED IF PT WOULD LIKE A PILLOW UNDER HER HIP TO TAKE PRESSURE OFF HER HIP. PT ANSWERED YES. AFTER APPLYING PILLOW UNDER RIGHT HIP, PT STATED TO THIS RN "YOU ARE A BAD MAN." THIS RN ASKED PT IF THERE WAS SOMETHING WRONG THAT THIS RN DID. PT NODDED HEAD YES. WHEN ASKED WHAT IT WAS THAT WAS DONE WRONG, PT RESPONDED "YOU KNOW WHAT YOU DID." THIS RN INFORMED PT THAT IF SOMETHING WAS DONE WRONG TO THE PT, EVEN BY THIS RN, IT SHOULD BE ADRESSED. PT SAT SINLENTLY IN BED. PT ASKED IF SHE WOULD LIKE TO TALK TO THE PROFESSOR OF PHYSICAL EDUCATION TO ADRESS THE PROBLEM, PT RESPONDED "YES." PROFESSOR OF PHYSICAL EDUCATION CALLED TO PT ROOM. THIS RN AND PROFESSOR OF PHYSICAL EDUCATION ASKED PT WHAT THE ISSUE WAS. PT STATED THAT PEOPLE WERE HEARD IN THE HALLWAY TALKING ABOUT THE PT. PROFESSOR OF PHYSICAL EDUCATION ASKED IF ANYONE SAID SPMETHING DIRECTLY TO PT, PT SAID "NO." THIS RN ASKED THE PT IF SHE FELT SAFE, PT REMAINED SILENT. THIS RN AND PROFESSOR OF PHYSICAL EDUCATION INFORMED PT IF ANY ISSUES WERE PRESENT THAT WE WOULD LIKE TO KNOW IN ORDER TO FIX THE PROBLEM. THIS RN INFORMED PT THAT HER SAFETY AND COMFORT ARE IMPORTANT AND THAT WE NEED TO MAKE SURE SHE FELT SAFE. PROFESSOR OF PHYSICAL EDUCATION ASKED PT IF STATEMENTS HEARD WERE FROM THE HALLWAY, PT SAID "YES." PROFESSOR OF PHYSICAL EDUCATION INFORMED PT THAT HE AND THIS RN WOULD DISCUSS WITH OTHER STAFF MEMBERS IN THE HALLWAY NOT TO CONVERSE OUTSIDE PT ROOM. PT ALSO INFORMED THAT THERE ARE O'THER PT'S ON FLOOR AND THAT SHE POSSIBLY HEARD SOMETHING FROM ANOTHER PT ROOM. PT ADAMANT THAT REMARKS WERE HEARD FROM HALLWAY JUST OUTSIDE HER ROOM.PT INSTRUCTED TO USE HER CALL LIGHT TO INFORM THIS RN IF ANYTHING SIMILAR IS HEARD BY PT. PT AGREED.
--- NOTE | 2023-02-19 01:58 | NUR ---
PT BLADDER SCANNED BY CIVIL CAD DESIGNER PER RN REQUEST. CIVIL CAD DESIGNER REPORTS [phone].
[2023-02-19 03:01] VITALS: BP 114/77
--- NOTE | 2023-02-19 03:22 | NUR ---
UPDATE AFTER STRAIGHT CATH WAS FINISHED, THIS RN TO ROOM WITH 2 OTHER STAFF MEMBERS TO HELP ROLL PT TO CHANGE ATTENDS. PT INFORMED OF WHAT STAFF WAS GOING TO DO IN ORDER TO CHANGE ATTENDS. PT EXPRESSED PAIN TO LEFT LEG AND LEFT SIDE OF BODY DURING ROLLING. ATTENDS CHANGED. PT ASSESSED FOR ANY COGNITIVE CHANGES DURING ROLLING AND HR MONITORED VIA TELE.
[2023-02-19 04:43] LABS: Hematocrit 26.6 % (33.0-51.0); Hemoglobin 8.5 g/dL (11.5-16.0); Mean Corpuscular HGB 33.1 pg (26.0-34.0); Mean Corpuscular Volume 104 fL (80-100); Mean Platelet Volume 12.5 fL (9.1-12.4); Platelet Count 86 K/mm3 (150-400); RDW Coefficient Variation 16.9 % (11.7-14.2); RDW Standard Deviation 64.2 fL (35.1-46.3); Red Blood Cell Count 2.57 M/mm3 (3.80-5.20); White Blood Cell Count 2.52 K/mm3 (4.00-11.30)
--- NOTE | 2023-02-19 05:00 | NUR ---
SHIFT SUMMARY PT A/OX 3 AT BEGINNING OF SHIFT, SLOW TO RESPOND. PT BECAME MORE CONFUSED DURING NIGHT, POSSIBLY ING. PT EXPRESSED FRUSTRATION TO THIS RN, SEE PREVIOUS NOTES. PT O2 SATS PERIODICALLY DOWN TO 80'S PT WOULD REMOVE NC D/T DISCOMFORT. HUMIDIFIER APPLIED TO NC TO HELP PREVENT DRYING OUT NARES. NO REPORT OF SOB/DYSPNEA FROM PT. OTHER VSS THROUGHOUT SHIFT. NO REPORT OF CHEST PAIN/PRESSURE. PT ABLE TO BE TURNED SLOWLY DURING ATTENDS CHANGE AND ASSESSMENT, NO CARDIAC PAUSES OR AMS NOTED. PT EXPRESSED LEFT SIDED PAIN DURING TURNS. PT BLADDER SCANNED AND STRAIGHT CATHED DURING CHECK WEIGHER, SEE CHART. PT STATED TOWARDS END OF SHE THAT SHE "NEEDS TO GET OUT OF HERE." THIS RN ASKED IF PT KNEW WHERE SHE WAS, PT AWARE SHE IS AT HOSPITAL. PT NOT REMEMBERING WHY SHE WAS BROUGHT TO HOSPITAL, WHEN INFORMED THAT HER DAUGHTER BROUGHT HER IN FOR "SIEZURE-LIKE ACTIVITY" AND BECOMING UNRESPONSIVE, PT RESPONDED "SHE IS A LIAR." ATROPINE AT BEDSIDE PER ORDER.
[2023-02-19 05:10] LABS: Albumin, Blood 3.8 g/dL (3.4-5.0); Anion Gap 4 mmol/L (6-16); Blood Urea Nitrogen 74 mg/dL (8-24); Bun/Creatinine Ratio 28.8 (12.0-20.0); CO2, Blood 29 mmol/L (21-32); Calcium, Blood 9.3 mg/dL (8.5-10.1); Chloride, Blood 103 mmol/L (98-108); Creatinine, Blood 2.57 mg/dL (0.40-1.00); Glomerular Filtration Rate 17 (60-); Glucose, Blood 111 mg/dL (70-99); Phosphorus, Blood 4.3 mg/dL (2.5-4.9); Potassium, Blood 4.9 mmol/L (3.5-5.5); Sodium, Blood 136 mmol/L (136-145); Uric Acid, Blood 8.5 mg/dL (2.6-6.0)
[2023-02-19 07:39] VITALS: BP 121/70
[2023-02-19 12:04] VITALS: BP 150/93
[2023-02-19 15:35] VITALS: BP 124/91
[2023-02-19 18:32] LABS: International Normalized Ratio 1.16; Prothrombin Time Results 12.1 Sec (9.7-11.5)
--- NOTE | 2023-02-19 18:38 | NUR ---
SHIFT SUMMARY; ASSUMED CARE AT 0700, A/A/OX2, POSSIBLE BASELINE DEMENTIA. AT TIMES CONFUSED AND DIFFICULT TO REDIRECT DURING SHIFT. BED ALARM ON FOR SAFTEY. 3-5L O2 VIA NC, L/S DIM T/O. CARDIOLOGY CONSULT TODAY, PLAN FOR PACEMAKER [place]. HR DECREASED 1 TIME DURING SHIFT TO 30'S, RECOVERED WITHIN A FEW SECONDS, NO SYCOPAL EPISODES DURING SHIFT. NO VOID DURING MOST OF SHIFT, BLADDER SCAN PRN. STRAIGHT CATH IN PM PER PROTOCOL ORDERS, THEN 1 INCONTIANT VOID. ATTENDS CHANGED. REPOISTIONED Q2, HEELS ELEVATED, MEPILEX CHANGED ON RIGHT GANN, QUARTER SIZED RAW SPOT ON RIGHT GANN. WILL CONTINUE TO MONITOR AND TREAT UNTIL CHANGE OF SHIFT.
[2023-02-19 20:13] VITALS: BP 130/89
[2023-02-20] VITALS (7 sets, daily range): BP systolic 110–152; BP diastolic 67–94
--- NOTE | 2023-02-20 05:47 | NUR ---
SHIFT SUMMARY A/Ox2 AND MOSTLY COOPERATIVE WITH CARE. OFTEN IS CONFUSED AND DOES NOT UNDERSTAND WHERE SHE IS, WHO STAFF ARE, OR THE CARE BEING PROVIDED. ABLE TO REDIRECT, BUT VOICE IS SOFT AND PT TENDS TO BE WITHDRAWN. IS ABLE TO RESPOND TO QUESTIONS AND OR INSTRUCTIONS FROM STAFF. CARDIAC, REMAINS IN AFIB RHYTHM 80-90 S WITH NO REPORTS OF CP, PRESSURE, OR DISCOMFORT. SBP HAS BEEN STABLE RANGING 110-130's. RESPIRATORY, MAINTAINS SPO2 90-92% ON 3-5L VIA NC. INCREASED O2 NEEDS NOTED WHEN ROLLING IN BED OR WHEN LAYING FLAT. LS CONTINUE TO BE VERY DIMINISHED, ESPECIALLY ON RIGHT SIDE. GI/, CONTINUES TO BE INCONTINENT OF URINE, ATTENDS CHANGED PRN TO KEEP C/D/I. PERFORMED BLADDER SCAN WITH HIGHEST VALUE BEING 325ML LEFT IN THE BLADDER. SMALL BROWN SMEAR THIS SHIFT. PT HAS BEEN NPO SINCE MDN FOR THORACENTESIS WELL PACEMAKER PLACEMENT THIS AM. PT Q2 HR REPOSITIONED TO KEEP PRESSURE OFF OF BONY PROMINENCES. ASSESSED PT FOR RISKS OF ANY IGNITION SOURCES WELL BEHAVIORS FOR INCREASED RISKS OF FIRE DANGER. PT EDUCATED ON COMMON SOURCES OF IGNITION WELL NEED TO KEEP A SAFE ENVIRONMENT. PT VOICED UNDERSTANDING. NO NEW ORDERS AT THIS TIME, WILL REPORT TO ONCOMING RN. RADHA RUIZ OF THIS NOTE
[2023-02-20 07:04] LABS: Albumin, Blood 3.9 g/dL (3.4-5.0); Anion Gap 6 mmol/L (6-16); Blood Urea Nitrogen 77 mg/dL (8-24); Bun/Creatinine Ratio 30.1 (12.0-20.0); CO2, Blood 27 mmol/L (21-32); Calcium, Blood 9.4 mg/dL (8.5-10.1); Chloride, Blood 103 mmol/L (98-108); Creatinine, Blood 2.56 mg/dL (0.40-1.00); Glomerular Filtration Rate 17 (60-); Glucose, Blood 95 mg/dL (70-99); Iron Serum 26 ug/dL (50-170); Percent Saturation 6.3 % (15.0-50.0); Potassium, Blood 5.2 mmol/L (3.5-5.5); Sodium, Blood 136 mmol/L (136-145); Total Iron Binding Capacity 410 ug/dL (250-450)
[2023-02-20 15:03] LABS: Automated BF RBC Count 0.002 M/mm3 (0-0); Automated BF WBC Count 0.072 K/mm3 (0-999)
[2023-02-20 15:04] LABS: Body Fluid WBC Count 72 /mm3 (0-999); RBC Count, Body Fluid 2000 /mm3 (0-0)
[2023-02-20 15:21] LABS: Lactate Dehydrogenase, Body Fl 78 U/L; Protein, Body Fluid 4.2 g/dL
[2023-02-20 15:31] LABS: Appearance, Body Fluid Clear (Clear); Color, Body Fluid L Yellow (None-Yellow)
[2023-02-20 15:47] LABS: Total Cell Count, Body Fluid 100
--- NOTE | 2023-02-20 18:19 | NUR ---
SHIFT SUMMARY; ASSUMED CARE AT 0700. SOMMULANT T/O SHIFT. MOANS WHEN ROLLED AND REPOSITIONED BUT WILL NOT FOLLOW INSTRUCTIONS. WILL NO OPEN EYES OR ANSWER QUESTIONS. NO ORAL INTAKE DURING SHIFT. UNABLE TO GIVE PO MEDS, UPDATED DR. WOODY AND DR. URBINA. TELEPHONE ORDER FROM DR. DELEON FOR 2MG IV BUMEX. DAUGHTER MET WITH PALLATIVE CARE, CARE MANAGEMENT AND HAD LONG DISCUSSION WITH DR. WOODY REGARDING HOSPICE. DAUGHTER REQUESTS TO PROCEED WITH THOROCENTESIS BUT STATES SHE IS UNDECIDED ON A PACEMAKER AND WILL LET US KNOW IN AM IF SHE WANTS TO PROCEED. 1L TAKEN OFF DURING THOROCENTESIS, O2 2L VIA NC POST PROCEDURE. REPOSTIONED Q2, MEPILEX PLACED TO CARMELO AREA IN UPPER BACK FOR REDNESS. ORAL CARE AND MOUTH MOISTURIZER, WILL CONTINUE TO MONITOR AND TREAT UNTIL CHANGE OF SHIFT.
--- NOTE | 2023-02-21 02:00 | NUR ---
UPDATE PT NOTED TO HAVE INCREASED WORK OF BREATHING WITH NOTICIBLE O2 INCREASE TO 6L VIA NC TO MAINTAIN SPO2 >90%. LS MORE COARSE WITH WEAK/MOIST COUGH PRESENT. DR. PHAM WITH PROVIDER TO BED SIDE WITH NEW ORDERS FOR REPEAT CHEST X-RAY. NO FUTHER ORDERS AT THIS TIME
--- NOTE | 2023-02-21 04:00 | NUR ---
UPDATE PT'S DAUGHTER NOTIFIED PT'S CHANGE IN CONDITION. PT'S DAUGHTER TO BEDSIDE TO DISCUSS PLAN OF CARE IN DEPTH WITH DR. SOSA. DAUGHTER AND MD HAD EXTENSIVE CONVERSATION BOTH ON THE PHONE AND AT BEDSIDE. FAMILY OF PT HAS CHOSEN TO INITIATE COMFORT CARE MEASURES. FAMILY REQUESTS VISIT FROM FACILITY SERVICE MANAGER. COMFORT CARE ORDERS INITATED BY MD. NO FURTHER ORDERS AT THIS TIME.
--- NOTE | 2023-02-21 04:26 | NUR ---
Pastoral care visitation. Pt's daughter Rosalinda was at the bedside providing consolation to her mother. Pt was moving her head intermittently but otherwise remained unresponsive. Rosalinda shared her thoughts and emotions related to her mother's decline, specifically related to honoring her mother's wishes and wanting what's best for her. We discussed the differences between prolonged suffering and allowing the body to naturally progress. Rosalinda notes the patient and family grant construct and reports finding solace accordingly. Patient appeared to be more relaxed and calm which provided comfort for the daughter. Assurance of prayer and prospective support extended. Pastoral care to remain available as needed.
--- NOTE | 2023-02-21 07:01 | NUR ---
FINAL DISCHARGE NOTE PT S DAUGHTER (SHAWN) FOR SOME TIME ASSISTING STAFF WITH INSURING THE PT WAS COMFORTABLE. IGNACIO SETHI FROM PASTORAL CARE TO BEDSIDE TO HELP COMFORT PT AND SHAWN IN THIS TIME. PT'S BREATH WAS NOTED TO CONTINUING TO SLOW WELL BREATHS BECOMING MORE IRREGULAR AND SHALLOW EVEN WITH 6L O2 VIA NC. PT WAS UNRESPONSIVE TO BOTH VERBAL OR TACTILE STIMULI. EYES WOULD NOT OPEN SPONTANEOUSLY AND PT HAS VERY HARD TIME CLEARING SECRETIONS. PRN SUCTION WELL COMFORT CARE MEASURES SUCH ATROPINE DROPS, ZOFRAN, SCOPOLAMINE, AND ROXANAOL EXPLAINED TO SHAWN IN DETAIL AND ADMINISTERED PER EMAR. DR. RAMIREZ TO BEDSIDE WELL TO OFFER SUPPORT TO PT AND HER FAMILY. THIS RN WITH PATIENT AND FAMILY T/O THE SHIFT ASSISTING IN THEIR NEEDS PROVIDING THERAPEUTIC LISTENING/SUPPORT. SHAWN HAD LEFT WITH PASTORAL CARE TO GO HOME EARLY THIS AM, BUT WAS UPDATED ON PT S PROGRESSING CONDITION AND PROMPTLY RETURNED TO BEDSIDE~0450 THIS AM. PT SHORTLY PASSED THIS AM WITH SHAWN AT BEDSIDE. PRONUNCEMENT CONFIRMED WITH ETHANOL QUALITY LEADER LIDIA MATTSON. IGNACIO CULLEN FROM PASTORAL CARE BACK TO BEDSIDE TO OFFER SUPPORT TO FAMILY WITH ARRANGEMENTS MADE BY FAMILY THROUGH [facility]. SHAWN EXPRESSED HER THANKS AND GRATEFULNESS FOR CARE PROVIDED BY STAFF
== END 2023-02-21 07:11 | DRG 291 ==
LOC: ER 03:58 → PCU 09:41 → MEDS 09:41 → PCU 14:32
PROVIDERS: Student in an Organized Health Care Education/Training Program; ADMIT Internal Medicine
PROC: 0W993ZZ Drainage of Right Pleural Cavity, Percutaneous Approach (ICD-10-PCS; principal; 2023-02-20)
DX: I13.0 Hypertensive heart and chronic kidney disease with heart failure and stage 1 through stage 4 chronic kidney disease, or unspecified chronic kidney disease (principal); I50.43 Acute on chronic combined systolic (congestive) and diastolic (congestive) heart failure; J96.01 Acute respiratory failure with hypoxia; J90 Pleural effusion, not elsewhere classified; G93.49 Other encephalopathy; D61.818 Other pancytopenia; Z51.5 Encounter for palliative care; Z66 Do not resuscitate; N18.4 Chronic kidney disease, stage 4 (severe); N17.9 Acute kidney failure, unspecified; I48.21 Permanent atrial fibrillation; F05 Delirium due to known physiological condition; I49.5 Sick sinus syndrome; T44.7X5A Adverse effect of beta-adrenoreceptor antagonists, initial encounter; D50.9 Iron deficiency anemia, unspecified; R77.8 Other specified abnormalities of plasma proteins; E78.5 Hyperlipidemia, unspecified; E03.9 Hypothyroidism, unspecified; F03.90 Unspecified dementia, unspecified severity, without behavioral disturbance, psychotic disturbance, mood disturbance, and anxiety; D63.1 Anemia in chronic kidney disease; Z86.73 Personal history of transient ischemic attack (TIA), and cerebral infarction without residual deficits; Z79.01 Long term (current) use of anticoagulants; Z88.2 Allergy status to sulfonamides; Z88.0 Allergy status to penicillin; Z79.82 Long term (current) use of aspirin; Z11.52 Encounter for screening for COVID-19
CPT/HCPCS: 0241U; 32555; 36415; 51701; 51798; 70450; 71045; 72125; 73502; 80053; 80069; 82803; 82947; 83540; 83550; 83615; 83735; 83880; 84146; 84157; 84484; 84550; 85025; 85027; 85610; 85730; 88108; 88305; 89051; 93005; 93010; 94760; 96374-59; 96375-59; 99285-25; A9270; J0461; J1940; J2405; J3010